=== PATIENT | male | born 1960 | race Caucasian/White ===

== ENCOUNTER 2020-08-07 14:10 | Observation (INO) | payer OTHER ==
[2020-08-07] MEDS ORDERED: PANTOPRAZOLE 40 MG/10 ML VIAL IVP STA (14:37)
[2020-08-07 15:25] LABS: Basophils # (A) 0.1 k/uL (0-0.2); Basophils % (A) 1 %; Eosinophils # (A) 0.1 k/uL (0-0.7); Eosinophils % (A) 1 %; HCT 42.4 % (39.0-53.0); HGB 13.7 gm/dL (13.0-17.5); Lymphocytes # (A) 1.2 k/uL (1.0-4.8); Lymphocytes % (A) 12 %; MCH 33.1 pg (25.0-35.0); MCHC 32.4 g/dL (31.0-37.0); MCV 102.1 fL (80.0-100.0); Macrocytosis Slight; Mean Platelet Volume 8.8; Monocytes # (A) 0.7 k/uL (0-1.0); Monocytes % (A) 7 %; Neutrophils % (A) 79 %; Platelet Count 217 k/uL (150-450); RBC 4.15 m/uL (4.30-5.90); RDW 13.7 % (11.5-15.5); WBC 10.1 k/uL (3.8-10.6)
[2020-08-07 15:31] LABS: INR 1.1 (<1.2); Partial Thromboplastin Time 25.3 sec (22.0-30.0); Prothrombin Time 11.1 sec (9.0-12.0)
[2020-08-07 15:38] LABS: ALT 46 U/L (4-49); AST 151 U/L (17-59); African American GFR (CKD) >90 (>60 ml/min/1.73 sqM); Albumin 3.5 g/dL (3.5-5.0); Alkaline Phosphatase 84 U/L (38-126); Anion Gap 10 mmol/L; Blood Urea Nitrogen 8 mg/dL (9-20); Calcium 8.7 mg/dL (8.4-10.2); Carbon Dioxide 22 mmol/L (22-30); Chloride 105 mmol/L (98-107); Glucose 126 mg/dL (74-99); Non-African American GFR(CKD) >90 (>60 ml/min/1.73 sqM); Potassium 4.3 mmol/L (3.5-5.1); Sodium 137 mmol/L (137-145); Total Bilirubin 1.1 mg/dL (0.2-1.3); Total Protein 6.8 g/dL (6.3-8.2)
[2020-08-07 15:44] LABS: Amorphous Sediment,Urine Rare /hpf; Appearance,Urine Cloudy (Clear); Bacteria,Urine Occasional /hpf; Bilirubin,Urine 1+ (Negative); Blood,Urine Negative (Negative); Color,Urine Orange; Glucose,Urine (UA) Negative (Negative); Ketones,Urine 1+ (Negative); Leukocyte Esterase,Urine Trace (Negative); Mucus,Urine Many /hpf; Nitrite,Urine Negative (Negative); Protein,Urine 1+ (Negative); Specific Gravity,Urine 1.028 (1.001-1.035); Squamous Epithelial Cell,Urine 3 /hpf (0-4); WBC,Urine 9 /hpf (0-5)
[2020-08-07 15:47] LABS: Alcohol 89 mg/dL
--- NOTE | 2020-08-07 16:21 | ED ---
General Adult HPI - General Chief complaint: Nausea/Vomiting/Diarrhea Stated complaint: ETOH Vomiting Time Seen by Provider: 08/07/20 14:35 Source: patient Limitations: no limitations - History of Present Illness Initial comments: Patient is a 59-year-old male with history of alcohol abuse presenting to the emergency department with a chief complaint of vomiting blood. Patient states he has been battling with alcohol abuse for the past several years. Patient reports he used to drink 1 pint per day. States for the past several months to a year he has been drinking about 3 pints per day. Patient states he is vomiting every morning for the past several years. Patient reports the last few days he's noticed some hematemesis. Patient also reports loose stools which are dark in color for the past 2-3 weeks. He denies any hematochezia. Denies any significant discomfort. States that he recently started seeing a primary care physician and is looking to begin rehab. States he drank a pint early this morning and also had 2 drinks prior to ED arrival. - Related Data Allergies Allergy/AdvReac Type Severity Reaction Status Date / Time No Known Allergies Allergy Verified 08/07/20 14:27 Review of Systems ROS Statement: Those systems with pertinent positive or pertinent negative responses have been documented in the HPI. ROS Other: All systems not noted in ROS Statement are negative. Past Medical History Past Medical History: Hypertension History of Any Multi-Drug Resistant Organisms: None Reported Past Surgical History: Cholecystectomy Smoking Status: Current some day smoker Past Alcohol Use History: Abuse Past Drug Use History: None Reported General Exam Limitations: no limitations General appearance: alert, in no apparent distress, obese Head exam: Present: atraumatic, normocephalic, normal inspection Eye exam: Present: normal appearance, PERRL, EOMI Pupils: Present: normal accommodation ENT exam: Present: normal exam, normal oropharynx, mucous membranes moist, TM's normal bilaterally, normal external ear exam Neck exam: Present: normal inspection, full ROM Respiratory exam: Present: normal lung sounds bilaterally. Absent: respiratory distress, rhonchi, stridor Cardiovascular Exam: Present: regular rate, normal rhythm, normal heart sounds GI/Abdominal exam: Present: soft. Absent: distended, tenderness, guarding Rectal exam: Present: normal inspection, heme (-) stool Extremities exam: Present: normal inspection, full ROM, normal capillary refill. Absent: tenderness Back exam: Present: normal inspection, full ROM. Absent: tenderness, CVA tenderness (R), CVA tenderness (L) Neurological exam: Present: alert, oriented X3, normal gait Psychiatric exam: Present: normal affect, normal mood Skin exam: Present: warm, dry, intact, normal color Course Vital Signs 08/07/20 14:24 Temperature 97.9 F Pulse Rate 105 H Respiratory 20 Rate Blood Pressure 117/73 O2 Sat by Pulse 97 Oximetry Medical Decision Making - Medical Decision Making Patient is 59-year-old male presenting to emergency Department with chief complaint of vomiting blood. Patient does have a long history of alcohol abuse and vomits every morning and daily basis. CBC does not reveal anemia. CMP reveals low BUN and creatinine likely secondary to chronic alcohol abuse. Coags within normal limits. Stool occult is negative. Serum alcohol is 89. ciwa pro tocol assessed. Patient will be admitted for further medical management. Case discussed with Dr. Henley. Admitting physician is - Lab Data Result diagrams: 08/07/20 15:02 08/07/20 15:02 Lab Results 08/07/20 08/07/20 08/07/20 Range/Units 15:02 15:02 15:02 WBC 10.1 (3.8-10.6) k/uL RBC 4.15 L (4.30-5.90) m/uL Hgb 13.7 (13.0-17.5) gm/dL Hct 42.4 (39.0-53.0) % MCV 102.1 H (80.0-100.0) fL MCH 33.1 (25.0-35.0) pg MCHC 32.4 (31.0-37.0) g/dL RDW 13.7 (11.5-15.5) % Plt Count 217 (150-450) k/uL Neutrophils % 79 % Lymphocytes % 12 % Monocytes % 7 % Eosinophils % 1 % Basophils % 1 % Neutrophils # 8.0 H (1.3-7.7) k/uL Lymphocytes # 1.2 (1.0-4.8) k/uL Monocytes # 0.7 (0-1.0) k/uL Eosinophils # 0.1 (0-0.7) k/uL Basophils # 0.1 (0-0.2) k/uL Macrocytosis Slight PT (9.0-12.0) sec INR (<1.2) APTT (22.0-30.0) sec Sodium 137 (137-145) mmol/L Potassium 4.3 (3.5-5.1) mmol/L Chloride 105 (98-107) mmol/L Carbon Dioxide 22 (22-30) mmol/L Anion Gap 10 mmol/L BUN 8 L (9-20) mg/dL Creatinine 0.59 L (0.66-1.25) mg/dL Est GFR (CKD-EPI)AfAm >90 (>60 ml/min/1.73 sqM) Est GFR (CKD-EPI)NonAf >90 (>60 ml/min/1.73 sqM) Glucose 126 H (74-99) mg/dL Calcium 8.7 (8.4-10.2) mg/dL Total Bilirubin 1.1 (0.2-1.3) mg/dL AST 151 H (17-59) U/L ALT 46 (4-49) U/L Alkaline Phosphatase 84 (38-126) U/L Total Protein 6.8 (6.3-8.2) g/dL Albumin 3.5 (3.5-5.0) g/dL Lipase 254 (23-300) U/L Urine Color [place] Urine Appearance Cloudy (Clear) Urine pH 6.0 (5.0-8.0) Ur Specific [place] 1.028 (1.001-1.035) Urine Protein 1+ H (Negative) Urine Glucose (UA) Negative (Negative) Urine Ketones 1+ H (Negative) Urine Blood Negative (Negative) Urine Nitrite Negative (Negative) Urine Bilirubin 1+ H (Negative) Urine Urobilinogen 8.0 (<2.0) mg/dL Ur Leukocyte Esterase Trace H (Negative) Urine WBC 9 H (0-5) /hpf Ur Squamous Epith Cells 3 (0-4) /hpf Amorphous Sediment Rare H (None) /hpf Urine Bacteria Occasional H (None) /hpf Urine Mucus Many H (None) /hpf Stool Occult Blood (Negative) Serum Alcohol 89 mg/dL Blood Type Blood Type Confirm Blood Type Recheck Bld Type Recheck Status Antibody Screen Spec Expiration Date 08/07/20 08/07/20 08/07/20 Range/Units 15:02 15:02 15:02 WBC (3.8-10.6) k/uL RBC (4.30-5.90) m/uL Hgb (13.0-17.5) gm/dL Hct (39.0-53.0) % MCV (80.0-100.0) fL MCH (25.0-35.0) pg MCHC (31.0-37.0) g/dL RDW (11.5-15.5) % Plt Count (150-450) k/uL Neutrophils % % Lymphocytes % % Monocytes % % Eosinophils % % Basophils % % Neutrophils # (1.3-7.7) k/uL Lymphocytes # (1.0-4.8) k/uL Monocytes # (0-1.0) k/uL Eosinophils # (0-0.7) k/uL Basophils # (0-0.2) k/uL Macrocytosis PT 11.1 (9.0-12.0) sec INR 1.1 (<1.2) APTT 25.3 (22.0-30.0) sec Sodium (137-145) mmol/L Potassium (3.5-5.1) mmol/L Chloride (98-107) mmol/L Carbon Dioxide (22-30) mmol/L Anion Gap mmol/L BUN (9-20) mg/dL Creatinine (0.66-1.25) mg/dL Est GFR (CKD-EPI)AfAm (>60 ml/min/1.73 sqM) Est GFR (CKD-EPI)NonAf (>60 ml/min/1.73 sqM) Glucose (74-99) mg/dL Calcium (8.4-10.2) mg/dL Total Bilirubin (0.2-1.3) mg/dL AST (17-59) U/L ALT (4-49) U/L Alkaline Phosphatase (38-126) U/L Total Protein (6.3-8.2) g/dL Albumin (3.5-5.0) g/dL Lipase (23-300) U/L Urine Color Urine Appearance (Clear) Urine pH (5.0-8.0) Ur Specific [place] (1.001-1.035) Urine Protein (Negative) Urine Glucose (UA) (Negative) Urine Ketones (Negative) Urine Blood (Negative) Urine Nitrite (Negative) Urine Bilirubin (Negative) Urine Urobilinogen (<2.0) mg/dL Ur Leukocyte Esterase (Negative) Urine WBC (0-5) /hpf Ur Squamous Epith Cells (0-4) /hpf Amorphous Sediment (None) /hpf Urine Bacteria (None) /hpf Urine Mucus (None) /hpf Stool Occult Blood Negative (Negative) Serum Alcohol mg/dL Blood Type A Negative Blood Type Confirm Blood Type Recheck No Previous Record Bld Type Recheck Status CABO Indicated Antibody Screen NEGATIVE Spec Expiration Date 08/10/2020 - 230108/07/20 Range/Units 15:54 WBC (3.8-10.6) k/uL RBC (4.30-5.90) m/uL Hgb (13.0-17.5) gm/dL Hct (39.0-53.0) % MCV (80.0-100.0) fL MCH (25.0-35.0) pg MCHC (31.0-37.0) g/dL RDW (11.5-15.5) % Plt Count (150-450) k/uL Neutrophils % % Lymphocytes % % Monocytes % % Eosinophils % % Basophils % % Neutrophils # (1.3-7.7) k/uL Lymphocytes # (1.0-4.8) k/uL Monocytes # (0-1.0) k/uL Eosinophils # (0-0.7) k/uL Basophils # (0-0.2) k/uL Macrocytosis PT (9.0-12.0) sec INR (<1.2) APTT (22.0-30.0) sec Sodium (137-145) mmol/L Potassium (3.5-5.1) mmol/L Chloride (98-107) mmol/L Carbon Dioxide (22-30) mmol/L Anion Gap mmol/L BUN (9-20) mg/dL Creatinine (0.66-1.25) mg/dL Est GFR (CKD-EPI)AfAm (>60 ml/min/1.73 sqM) Est GFR (CKD-EPI)NonAf (>60 ml/min/1.73 sqM) Glucose (74-99) mg/dL Calcium (8.4-10.2) mg/dL Total Bilirubin (0.2-1.3) mg/dL AST (17-59) U/L ALT (4-49) U/L Alkaline Phosphatase (38-126) U/L Total Protein (6.3-8.2) g/dL Albumin (3.5-5.0) g/dL Lipase (23-300) U/L Urine Color Urine Appearance (Clear) Urine pH (5.0-8.0) Ur Specific [place] (1.001-1.035) Urine Protein (Negative) Urine Glucose (UA) (Negative) Urine Ketones (Negative) Urine Blood (Negative) Urine Nitrite (Negative) Urine Bilirubin (Negative) Urine Urobilinogen (<2.0) mg/dL Ur Leukocyte Esterase (Negative) Urine WBC (0-5) /hpf Ur Squamous Epith Cells (0-4) /hpf Amorphous Sediment (None) /hpf Urine Bacteria (None) /hpf Urine Mucus (None) /hpf Stool Occult Blood (Negative) Serum Alcohol mg/dL Blood Type Blood Type Confirm A Negative Blood Type Recheck Bld Type Recheck Status Antibody Screen Spec Expiration Date Disposition Clinical Impression: Alcohol intoxication Disposition: ADMITTED IP TO THIS [facility] Condition: Good Instructions (If sedation given, give patient instructions): Acute Nausea and Vomiting (ED) Is patient prescribed a controlled substance at d/c from ED?: No Referrals: Lee Carrington MD [Primary Care Provider] - 1-2 days Time of Disposition: 17:09
[2020-08-07] MEDS ORDERED: LORazepam 2 MG/ML INJ IV PRN ×3 (16:36→16:38)
[2020-08-07] MEDS ORDERED: ACETAMINOPHEN TAB 325 MG TAB PO PRN (16:36)
[2020-08-07] MEDS ORDERED: IBUPROFEN 400 MG TAB PO PRN (16:36)
[2020-08-07] MEDS ORDERED: NALOXONE 0.4 MG/ML 1 ML VIAL IV PRN (16:36)
[2020-08-07] MEDS ORDERED: ONDANSETRON 4 MG/2 ML VIAL IVP PRN (16:36)
[2020-08-07] MEDS ORDERED: THIAMINE 100 MG/ML 2 ML VIAL IM STA (16:38)
--- NOTE | 2020-08-07 20:53 | XR ---
EXAMINATION TYPE: XR chest 1V DATE OF EXAM: 08/07/2020 COMPARISON: NONE HISTORY: Shortness of breath. TECHNIQUE: Single frontal view of the chest is obtained. FINDINGS: There is no focal air space opacity, pleural effusion, or pneumothorax seen. The cardiac silhouette size is within normal limits. The osseous structures are intact. IMPRESSION: No acute process.
--- NOTE | 2020-08-07 20:55 | XR ---
Result: History: Pain without known injury.. Comparison: None available. Technique: 2 views of the left hip. Findings: The bone mineralization is appropriate for age. There is no acute fracture or dislocation. The visualized osseous structures are in anatomic alignme nt. The femoral head is well-seated in the acetabulum. The joint spaces are preserved. Impression: No acute osseous abnormality.
[2020-08-07] MEDS: LORazepam 2 MG/ML INJ IV PRN (21:44)
[2020-08-08 01:37] LABS: Hemoglobin A1C 5.4 % (4.0-6.0)
--- NOTE | 2020-08-08 03:23 | HP ---
HISTORY AND PHYSICAL A 59-year-old white male, alcohol abuse, came with vomiting up blood. Alcohol abuse for many years. He has been drinking 3 pints a day, came in complaining of bilateral hip pain. Wants orthopedic surgeon to see him on his hip as well as some x-rays. He was on naltrexone, I do not see that he is on it now for alcohol withdrawal. ALLERGIES: Negative. PAST MEDICAL HISTORY: Hypertension, cholecystectomy. Current everyday smoker, 3 pints of whisky a day. REVIEW OF SYSTEMS: Fourteen-point review of systems negative. PHYSICAL EXAMINATION: VITAL SIGNS: Stable, afebrile. Temp 97.9, pulse rate is 105, blood pressure 117/73, respiratory 18 to 20, O2 of 97. CARDIOVASCULAR: S1, S2. LUNGS: Clear. GI: Soft. HEMATOLOGY: Negative Homans. PSYCH: Fair mood and affect. ENDOCRINE: BMI is over 40. MUSCULOSKELETAL: Tenderness to palpation bilateral hips. EXTREMITIES: 2+ edema. NEUROLOGIC: Moderate amount of tremor. ASSESSMENT: 1. Hematemesis. 2. Dehydration. 3. Alcohol abuse. 4. Alcohol withdrawal. 5. Hip pain. Orthopedic consult. [facility] protocol. Alcohol counseling. Replace electrolytes. Thiamine and multivitamin given daily. MMODL / IJN: [id number] /
[2020-08-08] MEDS: LORazepam 2 MG/ML INJ IV PRN ×2 (04:44→10:10)
[2020-08-08 05:12] LABS: Basophils % (A) 1 %; Eosinophils # (A) 0.1 k/uL (0-0.7); Eosinophils % (A) 1 %; HGB 13.3 gm/dL (13.0-17.5); Lymphocytes # (A) 1.3 k/uL (1.0-4.8); Lymphocytes % (A) 14 %; MCH 33.3 pg (25.0-35.0); MCHC 32.4 g/dL (31.0-37.0); MCV 102.7 fL (80.0-100.0); Macrocytosis Slight; Mean Platelet Volume 8.7; Monocytes # (A) 0.6 k/uL (0-1.0); Monocytes % (A) 7 %; Neutrophils % (A) 76 %; Platelet Count 189 k/uL (150-450); RBC 3.99 m/uL (4.30-5.90); RDW 13.1 % (11.5-15.5); WBC 9.2 k/uL (3.8-10.6)
[2020-08-08] MEDS: THIAMINE 100 MG TAB PO SCH ×2 (07:27→17:38)
[2020-08-08 09:14] LABS: African American GFR (CKD) 127.6 (60.0-200.0); Albumin 3.5 g/dL (3.80-4.90); Albumin/Globulin Ratio 1.35 (1.60-3.17); Anion Gap 9.7 mmol/L (4.00-12.00); BUN/Creat Ratio 18.33 Ratio (12.00-20.00); Carbon Dioxide 26.3 mmol/L (21.6-31.8); Globulin 2.6 g/dL (1.6-3.3); Non-African American GFR(CKD) 110.1 (60.0-200.0); Total Bilirubin 1.3 mg/dL (0.3-1.2); Total Protein 6.1 g/dL (6.2-8.2)
--- NOTE | 2020-08-08 11:08 | P.CNOR ---
History of Present Illness - HPI Consult date: 08/08/20 History of present illness: This is a 59-year-old male admitted for alcohol abuse. Patient's past medical history significant for hypertension and sleep apnea. Orthopedics is consulted due to left hip pain. Patient is seen and evaluated at bedside with Dr. Sander Carter. Patient denies any injury, but states that for the last few months he has noticed pain in the left hip. Patient localizes the pain to the back of his left hip. Patient states that he is able to ambulate. Patient denies any fever/chills, numbness, weakness, tingling, abdominal pain, shortness of breath or chest pain. Review of Systems See HPI. Past Medical History Past Medical History: Hypertension, Sleep Apnea/CPAP/BIPAP History of Any Multi-Drug Resistant Organisms: None Reported Past Surgical History: Cholecystectomy, Hernia Repair Additional Past Surgical History / Comment(s): Hernia repair, EGD, Colonoscopy Past Psychological History: Anxiety Smoking Status: Never smoker Past Alcohol Use History: Abuse, Daily Additional Past Alcohol Use History / Comment(s): Drink 3 pints of vodka daily Past Drug Use History: Marijuana Additional Drug Use History / Comment(s): smokes marijuana occasional - Past Family History Mother Family Medical History: Musculoskeletal Disorder Father Family Medical History: AFIB, Diabetes Mellitus Medications and Allergies Home Medications Medication Instructions Recorded Confirmed Type Losartan [Cozaar] 50 mg PO DAILY 08/07/20 08/07/20 History Allergies Allergy/AdvReac Type Severity Reaction Status Date / Time No Known Allergies Allergy Verified 08/07/20 17:22 Physical Examination Vital signs are stable. Patient is in no acute distress and is alert and oriented 3. There is mild tenderness to palpation over the posterior aspect of the left hip. Patient has good range of motion of the left hip without pain or difficulty. Calf is soft and nontender to palpation. Patient has full foot and ankle motion without pain or difficulty. Neurovascular status and circulatory status are intact. Results X-rays of the left hip dated 08/07/2020 are negative for any fracture or dislocation. - Labs Labs: Abnormal Lab Results - Last 24 Hours (Table) 08/07/20 08/07/20 08/07/20 Range/Units 15:02 15:02 15:02 RBC 4.15 L (4.30-5.90) m/uL MCV 102.1 H (80.0-100.0) fL Neutrophils # 8.0 H (1.3-7.7) k/uL BUN 8 L (9-20) mg/dL Creatinine 0.59 L (0.66-1.25) mg/dL Glucose 126 H (74-99) mg/dL Total Bilirubin (0.3-1.2) mg/dL AST 151 H (17-59) U/L Total Protein (6.2-8.2) g/dL Albumin (3.80-4.90) g/dL Albumin/Globulin Ratio (1.60-3.17) g/dL Urine Protein 1+ H (Negative) Urine Ketones 1+ H (Negative) Urine Bilirubin 1+ H (Negative) Ur Leukocyte Esterase Trace H (Negative) Urine WBC 9 H (0-5) /hpf Amorphous Sediment Rare H (None) /hpf Urine Bacteria Occasional H (None) /hpf Urine Mucus Many H (None) /hpf 08/08/20 08/08/20 Range/Units 04:34 04:34 RBC 3.99 L (4.30-5.90) m/uL MCV 102.7 H (80.0-100.0) fL Neutrophils # (1.3-7.7) k/uL BUN (9-20) mg/dL Creatinine (0.66-1.25) mg/dL Glucose (74-99) mg/dL Total Bilirubin 1.3 H (0.3-1.2) mg/dL AST 118 H (17-59) U/L Total Protein 6.1 L (6.2-8.2) g/dL Albumin 3.50 L (3.80-4.90) g/dL Albumin/Globulin Ratio 1.35 L (1.60-3.17) g/dL Urine Protein (Negative) Urine Ketones (Negative) Urine Bilirubin (Negative) Ur Leukocyte Esterase (Negative) Urine WBC (0-5) /hpf Amorphous Sediment (None) /hpf Urine Bacteria (None) /hpf Urine Mucus (None) /hpf H & H 08/07/20 08/08/20 Range/Units 15:02 04:34 Hgb 13.7 13.3 (13.0-17.5) gm/dL Hct 42.4 41.0 (39.0-53.0) % Coagulation 08/07/20 Range/Units 15:02 INR 1.1 (<1.2) Result Diagrams: 08/08/20 04:34 08/08/20 04:34 Assessment and Plan (1) Left hip pain Current Visit: Yes Status: Acute Code(s): M25.552 - PAIN IN LEFT HIP SNOMED Code(s): 11159102 (2) Alcohol intoxication Current Visit: Yes Status: Acute Code(s): F10.929 - ALCOHOL USE, UNSPECIFIED WITH INTOXICATION, UNSPECIFIED SNOMED Code(s): 07578916 Plan: 1. X-rays are reviewed and are negative for any fracture, dislocation or significant arthritis. 2. No surgical intervention planned. Patient may benefit from physical therapy and may follow up with [facility] as an outpatient.
[2020-08-08] MEDS: lamoTRIgine 25 MG TAB PO SCH (17:38)
[2020-08-08] MEDS: SUCRALFATE 1 GM TAB PO SCH (17:38)
--- NOTE | 2020-08-08 17:55 | US ---
EXAMINATION TYPE: US liver DATE OF EXAM: 08/08/2020 COMPARISON: NONE CLINICAL HISTORY: elevated liver enzymes. ETOH EXAM MEASUREMENTS: Liver Length: 13.2 cm Gallbladder Wall: Surgically absent CBD: 0.3 cm Right Kidney: 11.9 x 7.1 x 5.7 cm Pancreas: Obscured by bowel gas Liver: Coarse, echogenic echotexture. There is beam attenuation and nonvisualization of the posterio r liver. Gallbladder: Surgically absent Administrative Support Specialist reports negative sonographic Larsen sign. CBD: Not dilated, however very limited exam. Right Kidney: Limited visualization. No hydronephrosis. IMPRESSION: 1. Limited exam due to patient body habitus and overlying bowel gas. 2. Coarsened hepatic echotexture may represent diffuse hepatocellular process such as cirrhosis. Post erior liver is not visualized.
[2020-08-08] MEDS: PANTOPRAZOLE 40 MG/10 ML VIAL IVP SCH (21:00)
[2020-08-08 21:56] VITALS: RESP 18
[2020-08-09 05:26] LABS: HCT 39.5 % (39.0-53.0); HGB 12.6 gm/dL (13.0-17.5); MCH 32.9 pg (25.0-35.0); MCV 102.8 fL (80.0-100.0); Macrocytosis Slight; Mean Platelet Volume 8.8; Platelet Count 169 k/uL (150-450); RBC 3.84 m/uL (4.30-5.90); RDW 13.4 % (11.5-15.5); WBC 8.9 k/uL (3.8-10.6)
[2020-08-09 06:03] VITALS: BP 132/89; PULSE 80; TEMP 98.5
--- NOTE | 2020-08-09 08:04 | P.CONS ---
History of Present Illness - Reason for Consult Consult date: 08/08/20 Hematemesis Requesting physician: Lee Carrington - Chief Complaint Hematemesis - History of Present Illness 59-year-old male with a medical history significant for alcohol abuse, hypertension and MARIELLE who presented to the hospital due to complaints of nausea, vomiting and blood-tinged vomitus. The patient has a longstanding history of alcohol abuse which is increased over the past few months. He is up to 3 pints of alcohol a day. The patient presented to the hospital due to nausea and vomiting which has been occurring every morning with some blood-tinged vomitus. The patient first noticed the blood approximately 4 days ago. He denies any prior history of GI bleeding. He denies any abdominal pain. Laboratory evaluation on presentation significant for INR 1.1, total bilirubin 1.3, alkaline phosphatase 92, AST 118, ALT 42, hemoglobin 13.3 with stool occult testing negative for blood. Review of Systems REVIEW OF SYSTEMS: CONSTITUTIONAL: Denies any fevers, chills, weight change or fatigue. CARDIOVASCULAR: Denies any chest pain, palpitations high or low blood pressures RESPIRATORY: Denies any shortness of breath, hemoptysis or cough. GENITOURINARY: No dysuria or hematuria, does report dark colored urine. MUSCULOSKELETAL: No weakness reported, does report hip pain. SKIN: Denies any new rashes or lesions, jaundice or pallor. PSYCHIATRIC: Denies any depression or anxiety, alcohol abuse. NEUROLOGY: Denies headache, denies any new focal deficits. EARS/NOSE/THROAT: No recent hearing change, congestion, nasal discharge or sore throat. EYES: No pain in eyes, discharge or change in vision. GASTROINTESTINAL: As per HPI. Past Medical History Past Medical History: Hypertension, Sleep Apnea/CPAP/BIPAP History of Any Multi-Drug Resistant Organisms: None Reported Past Surgical History: Cholecystectomy, Hernia Repair Additional Past Surgical History / Comment(s): Hernia repair, EGD, Colonoscopy Past Psychological History: Anxiety Smoking Status: Never smoker Past Alcohol Use History: Abuse, Daily Additional Past Alcohol Use History / Comment(s): Drink 3 pints of vodka daily Past Drug Use History: Marijuana Additional Drug Use History / Comment(s): smokes marijuana occasional - Past Family History Mother Family Medical History: Musculoskeletal Disorder Father Family Medical History: AFIB, Diabetes Mellitus Medications and Allergies Home Medications Medication Instructions Recorded Confirmed Type Losartan [Cozaar] 50 mg PO DAILY 08/07/20 08/07/20 History Allergies Allergy/AdvReac Type Severity Reaction Status Date / Time No Known Allergies Allergy Verified 08/07/20 17:22 Physical Exam Vitals: Vital Signs Temp Pulse Pulse Resp BP BP Pulse Ox 08/08/20 11:50 98.3 F 90 24 134/84 95 08/08/20 05:00 98.6 F 97 20 145/82 93 L 08/07/20 21:00 98.6 F 99 20 143/90 95 08/07/20 17:53 104 H 18 144/90 93 L Intake and Output 08/08/20 08/08/20 08/08/20 06:59 14:59 22:59 Other: Voiding Method Toilet Toilet # Voids 1 2 On physical examination, patient appears comfortable in no apparent distress. HEAD: Normocephalic, atraumatic. EYES: No scleral icterus. No conjunctival injection. MOUTH: No lesions, tongue midline. NECK: Trachea midline, no gross abnormalities. CHEST: Clear to auscultation with no wheezing or rhonchi appreciated. HEART: Regular rate and rhythm. ABDOMEN: Soft, obese. Bowel sounds are positive. No organomegaly. No guarding or rigidity. EXTREMITIES: No pedal edema. SKIN: No rashes, no jaundice. NEUROLOGIC: Alert and oriented x3, tremulousness. No focal deficits. Results CBC & Chem 7: 08/09/20 04:59 08/08/20 04:34 Labs: Abnormal Lab Results - Last 24 Hours (Table) 08/07/20 08/07/20 08/07/20 Range/Units 15:02 15:02 15:02 RBC 4.15 L (4.30-5.90) m/uL MCV 102.1 H (80.0-100.0) fL Neutrophils # 8.0 H (1.3-7.7) k/uL BUN 8 L (9-20) mg/dL Creatinine 0.59 L (0.66-1.25) mg/dL Glucose 126 H (74-99) mg/dL Total Bilirubin (0.3-1.2) mg/dL AST 151 H (17-59) U/L Total Protein (6.2-8.2) g/dL Albumin (3.80-4.90) g/dL Albumin/Globulin Ratio (1.60-3.17) g/dL Urine Protein 1+ H (Negative) Urine Ketones 1+ H (Negative) Urine Bilirubin 1+ H (Negative) Ur Leukocyte Esterase Trace H (Negative) Urine WBC 9 H (0-5) /hpf Amorphous Sediment Rare H (None) /hpf Urine Bacteria Occasional H (None) /hpf Urine Mucus Many H (None) /hpf 08/08/20 08/08/20 Range/Units 04:34 04:34 RBC 3.99 L (4.30-5.90) m/uL MCV 102.7 H (80.0-100.0) fL Neutrophils # (1.3-7.7) k/uL BUN (9-20) mg/dL Creatinine (0.66-1.25) mg/dL Glucose (74-99) mg/dL Total Bilirubin 1.3 H (0.3-1.2) mg/dL AST 118 H (17-59) U/L Total Protein 6.1 L (6.2-8.2) g/dL Albumin 3.50 L (3.80-4.90) g/dL Albumin/Globulin Ratio 1.35 L (1.60-3.17) g/dL Urine Protein (Negative) Urine Ketones (Negative) Urine Bilirubin (Negative) Ur Leukocyte Esterase (Negative) Urine WBC (0-5) /hpf Amorphous Sediment (None) /hpf Urine Bacteria (None) /hpf Urine Mucus (None) /hpf US - abdomen: report reviewed (=US showing coarsened liver echotexture.) Assessment and Plan (1) Hematemesis Narrative/Plan: 59-year-old male with multiple medical comorbidities including alcohol abuse presenting with nausea, vomiting and blood-tinged vomitus. Patient reports nausea and vomiting every morning. Currently drinking 3 pints of alcohol daily. He denies any abdominal pain. Hemoglobin normal at 13.3 on presentation with stool negative for occult blood testing. Unclear etiology, suspicion is for Mal reena-Buenrostro tear in the setting of multiple episodes of nausea and vomiting, variceal bleed unlikely due to hemodynamic stability and normal hemoglobin, differential also includes peptic ulcer disease, gastritis, esophagitis or other etiology. Current Visit: Yes Status: Acute Code(s): K92.0 - HEMATEMESIS SNOMED Code(s): 5204927 (2) Alcohol intoxication Current Visit: Yes Status: Acute Code(s): F10.929 - ALCOHOL USE, UNSPECIFIED WITH INTOXICATION, UNSPECIFIED SNOMED Code(s): 87342752 (3) Left hip pain Current Visit: Yes Status: Acute Code(s): M25.552 - PAIN IN LEFT HIP SNOMED Code(s): 81307787 Plan: Supportive care GERD Protonix twice daily Continue to monitor hemoglobin and hematocrit and transfuse as needed Alcohol abstinence Continue to monitor for signs or symptoms of alcohol withdrawal Continue to monitor stool output No plans for endoscopic evaluation at this time as patient is currently undergoing alcohol withdrawal, decision on endoscopy will be based on labs and clinical course Thank you for allowing us to participate in the care of the patient
[2020-08-09] MEDS: SUCRALFATE 1 GM TAB PO SCH (08:24)
[2020-08-09] MEDS: lamoTRIgine 25 MG TAB PO SCH (08:24)
[2020-08-09] MEDS: THIAMINE 100 MG TAB PO SCH (08:24)
[2020-08-09] MEDS: PANTOPRAZOLE 40 MG/10 ML VIAL IVP SCH (08:25)
[2020-08-09 09:30] LABS: African American GFR (CKD) 119.7 (60.0-200.0); Albumin 3.4 g/dL (3.80-4.90); Albumin/Globulin Ratio 1.31 (1.60-3.17); Anion Gap 8.8 mmol/L (4.00-12.00); BUN/Creat Ratio 14.29 Ratio (12.00-20.00); Calcium 8.9 mg/dL (8.7-10.3); Carbon Dioxide 24.2 mmol/L (21.6-31.8); Globulin 2.6 g/dL (1.6-3.3); Non-African American GFR(CKD) 103.3 (60.0-200.0); Potassium 4.2 mmol/L (3.5-5.5); Total Bilirubin 1.2 mg/dL (0.2-1.2)
--- NOTE | 2020-08-09 12:36 | P.PN ---
Subjective Progress Note Date: 08/09/20 Principal diagnosis: Hematemesis Patient seen and examined at the bedside. The patient denies any vomiting, states he was slightly nauseated this morning. He did have a couple episodes of vomiting yesterday however reports no blood noted. He denies any abdominal pain, bowel movements have been normal with no melena or rectal bleeding. He is tolerating a regular diet. He is currently going through withdrawals from EtOH. He is on CIWA protocol. His hemoglobin remained stable at 12.6. Underwent a liver ultrasound yesterday which showed coarsened hepatic echotexture may represent diffuse hepatocellular process such as cirrhosis. Objective - Vital Signs Vital signs: Vital Signs Temp 98.5 F 08/09/20 05:00 Pulse 80 08/09/20 05:00 Resp 18 08/09/20 05:00 BP 132/89 08/09/20 05:00 Pulse Ox 92 L 08/09/20 05:00 Intake & Output 08/08/20 08/09/20 08/09/20 18:59 06:59 18:59 Other: Voiding Method Toilet Toilet Toilet # Voids 2 2 - Exam General appearance: The patient is alert, oriented, in no acute distress. Obese. HET: Head is normocephalic and atraumatic. Conjunctiva pink. Sclera anicteric. Neck: Supple without lymphadenopathy. Abdomen: Soft, nontender, nondistended with bowel sounds. No guarding or rigidity. Extremities: Normal skin color and turgor. No pedal edema Neurological: No focal deficits. Alert and oriented 3. No tremors noted. - Labs CBC & Chem 7: 08/09/20 04:59 08/09/20 04:59 Labs: Abnormal Lab Results - Last 24 Hours (Table) 08/09/20 08/09/20 Range/Units 04:59 04:59 RBC 3.84 L (4.30-5.90) m/uL Hgb 12.6 L (13.0-17.5) gm/dL MCV 102.8 H (80.0-100.0) fL AST 103 H (14-35) U/L Total Protein 6.0 L (6.2-8.2) g/dL Albumin 3.40 L (3.80-4.90) g/dL Albumin/Globulin Ratio 1.31 L (1.60-3.17) g/dL Assessment and Plan (1) Hematemesis Narrative/Plan: 59-year-old male with multiple medical comorbidities including alcohol abuse presenting with nausea, vomiting and blood-tinged vomitus. Patient reports nausea and vomiting every morning. Currently drinking 3 pints of alcohol daily. He denies any abdominal pain. Hemoglobin normal at 13.3 on presentation with stool negative for occult blood testing. Unclear etiology, suspicion is for Sunshine-Buenrostro tear in the setting of multiple episodes of nausea and vomiting, variceal bleed unlikely due to hemodynamic stability and normal hemoglobin, differential also includes peptic ulcer disease, gastritis, esophagitis or other etiology. Current Visit: Yes Status: Acute Code(s): K92.0 - HEMATEMESIS SNOMED Code(s): 3694453 Plan: Supportive care GERD Protonix twice daily Continue to monitor hemoglobin and hematocrit and transfuse as needed Alcohol abstinence Continue to monitor for signs or symptoms of alcohol withdrawal Continue to monitor stool output No plans for endoscopic evaluation at this time as patient is currently undergoing alcohol withdrawal, decision on endoscopy will be based on labs and clinical course Thank you for allowing us to participate in the care of the patient The impression and plan of care has been dictated as directed. I performed a history and examination of this patient, discussed the same with the dictator. I agree with the dictator's note ,documented as a scribe. Any additional findings or plans will be noted.
== END 2020-08-09 14:13 | disposition home or self-care (01) ==
LOC: EC 14:10 → 6NMEDSUR 16:35
PROVIDERS: ADMIT Family Medicine; ATTEND Family Medicine
DX: F10.229 Alcohol dependence with intoxication, unspecified (principal); E86.0 Dehydration; F10.239 Alcohol dependence with withdrawal, unspecified; F17.200 Nicotine dependence, unspecified, uncomplicated; I10 Essential (primary) hypertension; K92.0 Hematemesis; Z79.899 Other long term (current) drug therapy; Z83.3 Family history of diabetes mellitus; M25.552 Pain in left hip
CPT/HCPCS: 96376; 96374; 96375; 96372; 99285; 36415; 93005; 86900; 86901; 80053 ×3; 83690; 85025 ×2; 85027; 85610; 85730; 86850; 82272; 81001; 83036; 73502; 71045; 76705; G0378 ×3; G0480; J2060 ×2; J3411; C9113 ×2; 80320

== ENCOUNTER 2020-09-20 21:29 | Inpatient (IN) | payer OTHER ==
[2020-09-20] MEDS ORDERED: ONDANSETRON 4 MG/2 ML VIAL IVP STA (21:45)
[2020-09-20] MEDS ORDERED: PANTOPRAZOLE 40 MG/10 ML VIAL IVP STA ×2 (21:45→21:59)
[2020-09-20] MEDS ORDERED: SODIUM CHLORIDE 0.9% 1,000 ML IV STA (21:45)
[2020-09-20] MEDS ORDERED: SODIUM CHLORIDE 0.9% 500 ML 500 ML IV ONE (22:00)
[2020-09-20 22:17] LABS: Basophils # (A) 0.1 k/uL (0-0.2); Basophils % (A) 1 %; Eosinophils # (A) 0.1 k/uL (0-0.7); Eosinophils % (A) 1 %; HCT 46.9 % (39.0-53.0); Lymphocytes # (A) 1.1 k/uL (1.0-4.8); Lymphocytes % (A) 12 %; MCH 32.6 pg (25.0-35.0); MCHC 33.6 g/dL (31.0-37.0); Mean Platelet Volume 9.1; Monocytes # (A) 0.7 k/uL (0-1.0); Monocytes % (A) 8 %; Neutrophils # (A) 7.1 k/uL (1.3-7.7); Neutrophils % (A) 77 %; Platelet Count 203 k/uL (150-450); RBC 4.83 m/uL (4.30-5.90); RDW 13.1 % (11.5-15.5); WBC 9.2 k/uL (3.8-10.6)
--- NOTE | 2020-09-20 22:20 | ED ---
GI Bleed HPI - General Chief complaint: GI Bleed Stated complaint: Vomiting blood Time Seen by Provider: 09/20/20 21:41 Source: patient Mode of arrival: ambulatory Limitations: no limitations - History of Present Illness Initial comments: 59-year-old male patient presents to the emergency department today for evaluation of coffee-ground emesis. Patient states that since this afternoon he has been vomiting every 20 minutes. States each episode has contained dark brown coffee ground type output. States he has been feeling dizzy and weak. Denies any abdominal or chest pain. States he has not had a bowel movement to day. Denies any hematochezia or melena yesterday. He does admit to heavy alcohol use, states he drinks daily for the last 40 years. States he did have an episode last month for he was vomiting bright red blood. States he was admitted to the hospital but had no procedures done to determine source or necessary to stop the bleeding. Patient states he does have a history of hypertension he is not currently taking any medication for this. Denies any other medical problems. Does not to smoking cigarettes. Patient denies any recent rash, fever, chills, cough, shortness of breath, diarrhea, constipation, back pain, numbness, tingling, hematuria, dysuria, urinary urgency, urinary frequency, headache, visual changes, or any other complaints. - Related Data Previous Rx's Medication Instructions Recorded Acetaminophen Tab [Tylenol] 650 mg PO Q6HR PRN tab 08/09/20 Ibuprofen [Motrin] 400 mg PO Q6HR PRN tab 08/09/20 Thiamine [Vitamin B-1] 100 mg PO BID-W/MEALS 30 Days #60 08/09/20 tab lamoTRIgine [LaMICtal] 25 mg PO DAILY 30 Days #30 tab 08/09/20 Allergies Allergy/AdvReac Type Severity Reaction Status Date / Time No Known Allergies Allergy Verified 09/20/20 22:16 Review of Systems ROS Statement: Those systems with pertinent positive or pertinent negative responses have been documented in the HPI. ROS Other: All systems not noted in ROS Statement are negative. Past Medical History Past Medical History: Hypertension, Sleep Apnea/CPAP/BIPAP History of Any Multi-Drug Resistant Organisms: None Reported Past Surgical History: Cholecystectomy, Hernia Repair Additional Past Surgical History / Comment(s): Hernia repair, EGD, Colonoscopy Past Psychological History: Anxiety Smoking Status: Never smoker Past Alcohol Use History: Abuse, Daily Past Drug Use History: Marijuana - Past Family History Mother Family Medical History: Musculoskeletal Disorder Father Family Medical History: AFIB, Diabetes Mellitus General Exam Limitations: no limitations General appearance: alert, in no apparent distress, other (This is a well- developed, well-nourished adult male patient in no acute distress. Vital signs upon presentation are temperature 98.3F, pulse 114, respirations 22, blood pressure 144/103, pulse ox 97% on room air.) Eye exam: Present: normal appearance, PERRL, EOMI. Absent: scleral icterus, conjunctival injection, periorbital swelling ENT exam: Present: normal exam, normal oropharynx, mucous membranes moist Respiratory exam: Present: normal lung sounds bilaterally. Absent: respiratory distress, wheezes, rales, rhonchi, stridor Cardiovascular Exam: Present: regular rate, normal rhythm, normal heart sounds. Absent: systolic murmur, diastolic murmur, rubs, gallop, clicks GI/Abdominal exam: Present: soft, normal bowel sounds. Absent: distended, te nderness, guarding, rebound, rigid Neurological exam: Present: alert, oriented X3, CN II-XII intact Psychiatric exam: Present: normal affect, normal mood Skin exam: Present: warm, dry, intact, normal color. Absent: rash Course Vital Signs 09/20/20 09/20/20 21:36 23:12 Temperature 98.3 F Pulse Rate 114 H 88 Respiratory 22 16 Rate Blood Pressure 144/103 145/78 O2 Sat by Pulse 97 93 L Oximetry Medical Decision Making - Medical Decision Making 39-year-old male patient presents to the emergency department today for evaluation of multiple episodes of coffee-ground emesis. Patient did have an episode here in the emergency department, there was present of dark brown vomitus with clots present. Labs reviewed and did reveal normal white blood cell, hemoglobin 15.7. INR 1.2. Lactic acid 6.5. AST 164, ALT 50. Alcohol level at this time is 95. Patient will be admitted to the hospital for further evaluation by GI. We will initiate [facility] protocol for alcohol draw. Patient is agreeable this plan. - Lab Data Result diagrams: 09/20/20 22:08 09/20/20 22:08 Lab Results 09/20/20 09/20/20 09/20/20 Range/Units 22:08 22:08 22:08 WBC 9.2 (3.8-10.6) k/uL RBC 4.83 (4.30-5.90) m/uL Hgb 15.7 D (13.0-17.5) gm/dL Hct 46.9 (39.0-53.0) % MCV 97.0 D (80.0-100.0) fL MCH 32.6 (25.0-35.0) pg MCHC 33.6 (31.0-37.0) g/dL RDW 13.1 (11.5-15.5) % Plt Count 203 (150-450) k/uL MPV 9.1 Neutrophils % 77 % Lymphocytes % 12 % Monocytes % 8 % Eosinophils % 1 % Basophils % 1 % Neutrophils # 7.1 (1.3-7.7) k/uL Lymphocytes # 1.1 (1.0-4.8) k/uL Monocytes # 0.7 (0-1.0) k/uL Eosinophils # 0.1 (0-0.7) k/uL Basophils # 0.1 (0-0.2) k/uL PT 11.8 (9.0-12.0) sec INR 1.2 H (<1.2) APTT 26.8 (22.0-30.0) sec Sodium 139 (137-145) mmol/L Potassium 4.9 (3.5-5.1) mmol/L Chloride 101 (98-107) mmol/L Carbon Dioxide 21 L (22-30) mmol/L Anion Gap 17 mmol/L BUN 13 (9-20) mg/dL Creatinine 0.73 (0.66-1.25) mg/dL Est GFR (CKD-EPI)AfAm >90 (>60 ml/min/1.73 sqM) Est GFR (CKD-EPI)NonAf >90 (>60 ml/min/1.73 sqM) Glucose 115 H (74-99) mg/dL Plasma Lactic Acid Kiel (0.7-2.0) mmol/L Calcium 9.0 (8.4-10.2) mg/dL Magnesium 1.8 (1.6-2.3) mg/dL Total Bilirubin 1.9 H (0.2-1.3) mg/dL AST 164 H (17-59) U/L ALT 50 H (4-49) U/L Alkaline Phosphatase 100 (38-126) U/L Troponin I (0.000-0.034) ng/mL Total Protein 8.6 H (6.3-8.2) g/dL Albumin 4.4 (3.5-5.0) g/dL Lipase 102 (23-300) U/L Serum Alcohol 95 mg/dL Blood Type Blood Type Recheck Bld Type Recheck Status Antibody Screen Spec Expiration Date 09/20/20 09/20/20 09/20/20 Range/Units 22:08 22:08 22:08 WBC (3.8-10.6) k/uL RBC (4.30-5.90) m/uL Hgb (13.0-17.5) gm/dL Hct (39.0-53.0) % MCV (80.0-100.0) fL MCH (25.0-35.0) pg MCHC (31.0-37.0) g/dL RDW (11.5-15.5) % Plt Count (150-450) k/uL MPV Neutrophils % % Lymphocytes % % Monocytes % % Eosinophils % % Basophils % % Neutrophils # (1.3-7.7) k/uL Lymphocytes # (1.0-4.8) k/uL Monocytes # (0-1.0) k/uL Eosinophils # (0-0.7) k/uL Basophils # (0-0.2) k/uL PT (9.0-12.0) sec INR (<1.2) APTT (22.0-30.0) sec Sodium (137-145) mmol/L Potassium (3.5-5.1) mmol/L Chloride (98-107) mmol/L Carbon Dioxide (22-30) mmol/L Anion Gap mmol/L BUN (9-20) mg/dL Creatinine (0.66-1.25) mg/dL Est GFR (CKD-EPI)AfAm (>60 ml/min/1.73 sqM) Est GFR (CKD-EPI)NonAf (>60 ml/min/1.73 sqM) Glucose (74-99) mg/dL Plasma Lactic Acid Kiel 6.5 H* (0.7-2.0) mmol/L Calcium (8.4-10.2) mg/dL Magnesium (1.6-2.3) mg/dL Total Bilirubin (0.2-1.3) mg/dL AST (17-59) U/L ALT (4-49) U/L Alkaline Phosphatase (38-126) U/L Troponin I <0.012 (0.000-0.034) ng/mL Total Protein (6.3-8.2) g/dL Albumin (3.5-5.0) g/dL Lipase (23-300) U/L Serum Alcohol mg/dL Blood Type A Negative Blood Type Recheck A Neg Bld Type Recheck Status No Antibody Screen NEGATIVE Spec Expiration Date 09/23/20202307 - EKG Data -: EKG Interpreted by [place] EKG Comments: EKG obtained at 2221 shows sinus tachycardia with a ventricular rate of 101, W[place] interval 148, QRS duration 90, QT 392, QTc 508. No evidence of ST elevation or depression. Disposition Clinical Impression: Hematemesis, Lactic acidosis Disposition: ADMITTED IP TO THIS [facility] Condition: Serious Decision to Admit Reason: Admit from EC Decision Date: 09/20/20 Decision Time: 23:09
[2020-09-20 22:28] LABS: ALT 50 U/L (4-49); AST 164 U/L (17-59); African American GFR (CKD) >90 (>60 ml/min/1.73 sqM); Albumin 4.4 g/dL (3.5-5.0); Alkaline Phosphatase 100 U/L (38-126); Anion Gap 17 mmol/L; Blood Urea Nitrogen 13 mg/dL (9-20); Carbon Dioxide 21 mmol/L (22-30); Chloride 101 mmol/L (98-107); Glucose 115 mg/dL (74-99); HGB 15.7 gm/dL (13.0-17.5); Lipase 102 U/L (23-300); Magnesium 1.8 mg/dL (1.6-2.3); Non-African American GFR(CKD) >90 (>60 ml/min/1.73 sqM); Potassium 4.9 mmol/L (3.5-5.1); Sodium 139 mmol/L (137-145); Total Bilirubin 1.9 mg/dL (0.2-1.3); Total Protein 8.6 g/dL (6.3-8.2)
[2020-09-20 22:33] LABS: Alcohol 95 mg/dL
[2020-09-20] MEDS ORDERED: SODIUM CHLORIDE 0.9% 1,000 ML IV ONE (22:50)
[2020-09-20 22:53] LABS: INR 1.2 (<1.2); Partial Thromboplastin Time 26.8 sec (22.0-30.0); Prothrombin Time 11.8 sec (9.0-12.0)
[2020-09-20] MEDS ORDERED: ONDANSETRON 4 MG/2 ML VIAL IVP PRN (23:07)
[2020-09-20] MEDS ORDERED: NALOXONE 0.4 MG/ML 1 ML VIAL IV PRN (23:07)
[2020-09-20] MEDS ORDERED: LORazepam 2 MG/ML INJ IV PRN ×2 (23:12)
[2020-09-20] MEDS ORDERED: THIAMINE 100 MG/ML 2 ML VIAL IM STA (23:12)
[2020-09-20] MEDS: THIAMINE 100 MG TAB PO SCH (23:44)
[2020-09-20] MEDS: LORazepam 2 MG/ML INJ IV PRN (23:45)
--- NOTE | 2020-09-21 01:53 | XR ---
EXAM: XR Chest, 1 View CLINICAL HISTORY: ITS.REASON XR Reason: NG Tube TECHNIQUE: Frontal view of the chest. COMPARISON: 08/07/2020 FINDINGS: Lungs: No consolidation or mass. Pleural space: No acute findings Heart: No cardiomegaly. Bones/joints: No acute findings. NG tube courses towards the stomach but the tip is not well characterized. IMPRESSION: NG tube courses towards the stomach but the tip is not well characterized. Consider KUB to see whether where the tip is.
[2020-09-21 04:08] LABS: HCT 38.6 % (39.0-53.0); MCH 33.2 pg (25.0-35.0); MCHC 33.8 g/dL (31.0-37.0); MCV 98.4 fL (80.0-100.0); Mean Platelet Volume 8.9; Platelet Count 135 k/uL (150-450); RBC 3.92 m/uL (4.30-5.90); WBC 8.9 k/uL (3.8-10.6)
[2020-09-21] MEDS: LORazepam 2 MG/ML INJ IV PRN ×2 (04:08→15:12)
[2020-09-21] MEDS: SODIUM CHLORIDE 0.9% 1,000 ML IV SCH ×2 (04:11→18:09)
[2020-09-21] MEDS: THIAMINE 100 MG TAB PO SCH ×2 (08:35→17:09)
--- NOTE | 2020-09-21 09:23 | XR ---
EXAMINATION TYPE: XR chest 1V portable DATE OF EXAM: 09/21/2020 COMPARISON: Prior chest x-ray 09/21/2020 HISTORY: NG tube placement TECHNIQUE: Single frontal view of the chest is obtained. FINDINGS: NG tube is seen overlying the upper chest but is not well seen distally. No other signific ant interval change. IMPRESSION: NG tube is not seen distally.
[2020-09-21] MEDS: PANTOPRAZOLE 40 MG/10 ML VIAL IVP SCH (10:01)
[2020-09-21 10:57] LABS: HCT 37.5 % (39.0-53.0); HGB 12.5 gm/dL (13.0-17.5); MCH 32.9 pg (25.0-35.0); MCHC 33.4 g/dL (31.0-37.0); MCV 98.5 fL (80.0-100.0); Mean Platelet Volume 8.9; Platelet Count 136 k/uL (150-450); RBC 3.81 m/uL (4.30-5.90); RDW 13.1 % (11.5-15.5); WBC 9.9 k/uL (3.8-10.6)
[2020-09-21] MEDS ORDERED: ACETAMINOPHEN TAB 325 MG TAB PO PRN (11:09)
[2020-09-21] MEDS ORDERED: IBUPROFEN 400 MG TAB PO PRN (11:09)
[2020-09-21 14:47] LABS: HCT 37.7 % (39.0-53.0); HGB 12.4 gm/dL (13.0-17.5); MCH 32.6 pg (25.0-35.0); MCHC 32.9 g/dL (31.0-37.0); Mean Platelet Volume 8.9; Platelet Count 126 k/uL (150-450); RBC 3.81 m/uL (4.30-5.90); RDW 13.5 % (11.5-15.5); WBC 8.9 k/uL (3.8-10.6)
[2020-09-21] MEDS ORDERED: INFLUENZA VACCINE (6 MOS+) 60 MCG/0.5 ML SYRINGE IM ONE (17:52)
[2020-09-21 18:31] LABS: HCT 36.9 % (39.0-53.0); HGB 12.4 gm/dL (13.0-17.5); MCH 32.9 pg (25.0-35.0); MCHC 33.7 g/dL (31.0-37.0); MCV 97.7 fL (80.0-100.0); Mean Platelet Volume 8.8; Platelet Count 112 k/uL (150-450); RBC 3.77 m/uL (4.30-5.90); RDW 13.1 % (11.5-15.5); WBC 8.9 k/uL (3.8-10.6)
--- NOTE | 2020-09-21 20:11 | HP ---
HISTORY AND PHYSICAL This is a 59-year-old white male who came to the emergency room with coffee-ground emesis. He has been drinking 2 pints of alcohol a day. Coffee-ground emesis, dizziness, weakness. Bowel movement today. He has had NG tube placement today and he coughed it out. He says he pulled it out himself. He is on CIWA protocol. Hemoglobin has been stable through the day. Waiting for GI to do an EGD and colonoscopy, which I think they are planning. Otherwise, he feels pretty good. HOME MEDICINES: Tylenol, Motrin, thiamine, Lamictal. ALLERGIES: NO KNOWN DRUG ALLERGIES. REVIEW OF SYSTEMS: Fourteen-point review of systems negative except for mentioned in HPI. PAST MEDICAL HISTORY: Alcoholism, sleep apnea, hypertension, anxiety, marijuana abuse. PAST SURGICAL HISTORY: Cholecystectomy, hernia surgery. FAMILY HISTORY: Mother with musculoskeletal disorder. Father with atrial fibrillation, diabetes mellitus. PHYSICAL EXAMINATION: Blood pressure 144/102, respiratory rate 18 to 22, temperature 98.3, pulse 114, oxygenation 97. ENDOCRINE: BMI is over 40. Pupils equal, round, reactive to light and accommodation. CARDIOVASCULAR: S1, S2. Abdomen is distended due to obesity. NEUROLOGIC: Cranial nerves intact. PSYCH: Fair mood and affect. SKIN: Warm, dry. No rash. ASSESSMENT: 1. Acute coffee-ground emesis; possible gastrointestinal bleed versus esophageal varices versus gastritis. 2. Alcoholism with alcohol intoxication and alcohol dependence. Continue with CIWA protocol. Wait for GI consultation for possible EGD and colonoscopy. Replace electrolytes as needed. Continue CIWA protocol. MMODL / IJN: [id number] /
[2020-09-22 00:30] LABS: HCT 35.9 % (39.0-53.0); MCH 32.7 pg (25.0-35.0); MCHC 33.4 g/dL (31.0-37.0); Mean Platelet Volume 9.9; Platelet Count 110 k/uL (150-450); RBC 3.66 m/uL (4.30-5.90); RDW 13.5 % (11.5-15.5); WBC 7.4 k/uL (3.8-10.6)
[2020-09-22] MEDS: SODIUM CHLORIDE 0.9% 1,000 ML IV SCH ×2 (02:51→08:27)
[2020-09-22] MEDS: LORazepam 2 MG/ML INJ IV PRN ×2 (05:54→09:53)
[2020-09-22 07:46] LABS: Basophils % (A) 1 %; Eosinophils # (A) 0.2 k/uL (0-0.7); Eosinophils % (A) 2 %; HCT 35.2 % (39.0-53.0); HGB 11.7 gm/dL (13.0-17.5); Lymphocytes # (A) 1.2 k/uL (1.0-4.8); Lymphocytes % (A) 18 %; MCH 32.7 pg (25.0-35.0); MCHC 33.2 g/dL (31.0-37.0); MCV 98.6 fL (80.0-100.0); Mean Platelet Volume 8.9; Monocytes # (A) 0.5 k/uL (0-1.0); Monocytes % (A) 7 %; Neutrophils # (A) 4.9 k/uL (1.3-7.7); Neutrophils % (A) 71 %; Platelet Count 106 k/uL (150-450); RBC 3.57 m/uL (4.30-5.90); RDW 13.1 % (11.5-15.5); WBC 6.8 k/uL (3.8-10.6)
[2020-09-22] MEDS: THIAMINE 100 MG TAB PO SCH ×2 (08:22→17:10)
[2020-09-22] MEDS: PANTOPRAZOLE 40 MG/10 ML VIAL IVP SCH (08:24)
[2020-09-22] MEDS ORDERED: lamoTRIgine 25 MG TAB PO SCH (09:00)
--- NOTE | 2020-09-22 09:38 | CONS ---
CONSULTATION DATE OF CONSULTATION: 09/21/2020 REQUESTING PHYSICIAN: Dr. Lee Carrington. REASON FOR CONSULTATION: Acute upper gastrointestinal bleed. HISTORY OF PRESENT ILLNESS: The patient is a 59-year-old pleasant white male came into the emergency room this morning complaining of coffee-ground emesis for the last 2 day's duration. He had at least 7 or 8 of these episodes associated with some dizziness, abdominal discomfort and came to the emergency room and subsequently admitted to the hospital for further evaluation. Patient has history of heavy alcohol abuse and he has been drinking for more than 40 years. He denies any NSAID use. No prior history of peptic ulcer disease. He had an upper endoscopy several years ago. In the emergency room he had a hemoglobin of 12.5 g/dL. PAST MEDICAL HISTORY: Significant for heavy alcohol abuse, anxiety, depression. MEDICATIONS: Tylenol, Lamictal, vitamin B1. No known drug allergies. PAST SURGICAL HISTORY: Cholecystectomy, hernia repair. FAMILY HISTORY: Mother had some musculoskeletal disorder. Father had diabetes mellitus. REVIEW OF SYSTEMS: CARDIOPULMONARY: No chest pain or shortness of breath. GI: mentioned earlier. : No dysuria, hematuria. MUSCULOSKELETAL Unremarkable. SKIN: Unremarkable. ENDOCRINE: Unremarkable. PSYCHIATRIC: Unremarkable. NEUROLOGY: Unremarkable. ENT/VISION: Unremarkable. CONSTITUTIONAL: No recent weight loss. No fever, chills, night sweats. PHYSICAL EXAMINATION: Blood pressure 116/72, pulse 92, temperature 98. Examination unremarkable, conjunctive are pink, sclerae nonicteric, oral cavity no lesions. NECK: No JVD or lymph node enlargement. CHEST: Clear to auscultation. HEART: Regular rate and rhythm. ABDOMEN: Slightly distended. There was minimal tenderness in the epigastric area. Rest of the abdomen was benign. Bowel sounds are positive. EXTREMITIES: No pedal edema. SKIN: No rashes. NEUROLOGIC: Alert and oriented x3. No focal deficits. LABS: WBC 9.2, hemoglobin 15.7, platelets 203. Hemoglobin dropped to 12.4, platelets are down to 112. PT, INR 1.2. AST and ALT 164 and 50 respectively, T bilirubin 1.9, alkaline phosphatase 100, lactic acid was 6.5 and is down to 1.8. Serum alcohol level was 95. IMPRESSION: 1. Acute upper gastrointestinal bleed in this patient with history of heavy alcohol abuse. He had several episodes of coffee-ground emesis. No similar symptoms in the past. Denies any prior history of peptic ulcer disease. Hemoglobin dropped from 15-12 g/dL. Has an NG tube in place which he accidently pulled out about an hour ago and there was coffee-ground material in the NG tube. Clinically doing well and the nausea, vomiting has resolved. 2. Heavy alcohol abuse. 3. Elevated LFTs with AST more than ALT, all indicative of chronic alcoholic liver disease. 4. Thrombocytopenia, probably related to underlying chronic liver disease. RECOMMENDATIONS: 1. Keep the NG tube out. 2. Start him on a clear liquid diet. 3. Protonix 40 mg twice daily. 4. N.p.o. after midnight. 5. We will proceed with an upper endoscopy tomorrow. Discussed with the patient risks, benefits and complications and he is agreeable to it. Thank you for this consultation. SABINA / HOMERO: [id number] /
[2020-09-22 12:40] LABS: African American GFR (CKD) 113.3 (60.0-200.0); Albumin 3.2 g/dL (3.80-4.90); Albumin/Globulin Ratio 1.39 (1.60-3.17); Anion Gap 10.8 mmol/L (4.00-12.00); Calcium 8.2 mg/dL (8.7-10.3); Carbon Dioxide 24.2 mmol/L (21.6-31.8); Globulin 2.3 g/dL (1.6-3.3); Non-African American GFR(CKD) 97.8 (60.0-200.0); Potassium 3.9 mmol/L (3.5-5.5); Total Bilirubin 1.3 mg/dL (0.2-1.2); Total Protein 5.5 g/dL (6.2-8.2)
[2020-09-22] MEDS ORDERED: PROPOFOL 10 MG/ML 20 ML VIAL IV ONE (13:34)
[2020-09-22] MEDS ORDERED: LACTATED RINGERS 1,000 ML IV ONE (13:38)
--- NOTE | 2020-09-22 13:46 | P.PCN ---
Date of Procedure: 09/22/20 Procedure(s) Performed: BRIEF HISTORY: Patient is a 59-year-old, pleasant, white male admitted hospital with acute upper GI bleed. He had several episodes of coffee-ground emesis for the last 2 days. Hemoglobin is 11.5 g/dL. History of heavy alcohol abuse. He scheduled for an upper endoscopy to evaluate the source of upper GI bleed. PROCEDURE PERFORMED: Esophagogastroduodenoscopy with biopsy. PREOPERATIVE DIAGNOSIS: Acute GI bleed. IV sedation per anesthesia. PROCEDURE: After informed consent was obtained, the patient was brought into the endoscopy unit. IV sedation was administered by Anesthesia under continuous monitoring. Initially the Olympus GIF-140 video endoscope was inserted into the mouth. Esophagus intubated without any difficulty. It was gradually advanced into the stomach and duodenum and carefully examined. The bulb and the second part of the duodenum appeared normal. The scope at this time was withdrawn to the stomach, adequately insufflated with air, and upon careful examination, mucosa of the antrum, body and mild diffuse gastritis and biopsies were done from this area. The, cardia and the fundus appeared normal. The scope was then withdrawn into the esophagus. Small sliding-type well hernia noted. The The GE junction was located at 38 cm from the incisors. It was a long segment of Li's esophagus extending from 30-38 cm from the incisors and biopsies were done from this area. There was small esophageal varices noted in the distal esophagus. No active bleeding noted. Th rest of the e esophagus appeared normal. There were no erosions or ulcerations seen and the patient tolerated the procedure well. IMPRESSION: 1. Small distal esophageal varices with no active bleeding. 2. 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 Mild antral gastritis 4. Small hiatal hernia. RECOMMENDATIONS: The findings of this examination were discussed with the patient . He will eventually on Protonix 40 mg twice daily. Await biopsy results. Diet will be advanced as tolerated. Continue Protonix 40 mg twice daily..
[2020-09-22 15:18] VITALS: BP 133/89; PULSE 87; RESP 17; TEMP 98.2
[2020-09-22 15:36] VITALS: BMI 37.5
== END 2020-09-22 19:35 | disposition home or self-care (01) | DRG 432 ==
LOC: EC 21:29 → 6NMEDSUR 22:59 → 4SSUR 09-21 16:49 → OBSVTOIN 09-22 09:01
PROVIDERS: ADMIT Family Medicine; ATTEND Family Medicine
PROC: 0D9670Z Drainage of Stomach with Drainage Device, Via Natural or Artificial Opening (ICD-10-PCS; 2020-09-21)
PROC: 0DB78ZX Excision of Stomach, Pylorus, Via Natural or Artificial Opening Endoscopic, Diagnostic (ICD-10-PCS; principal; 2020-09-22 13:05)
PROC: 0DB28ZX Excision of Middle Esophagus, Via Natural or Artificial Opening Endoscopic, Diagnostic (ICD-10-PCS; principal; 2020-09-22 13:05)
DX: K70.9 Alcoholic liver disease, unspecified (principal); I85.11 Secondary esophageal varices with bleeding; E87.2 Acidosis; D69.59 Other secondary thrombocytopenia; F10.229 Alcohol dependence with intoxication, unspecified; Y90.4 Blood alcohol level of 80-99 mg/100 ml; K22.70 Barrett's esophagus without dysplasia; K29.70 Gastritis, unspecified, without bleeding; K44.9 Diaphragmatic hernia without obstruction or gangrene; G47.30 Sleep apnea, unspecified; I10 Essential (primary) hypertension; Z79.899 Other long term (current) drug therapy; Z90.49 Acquired absence of other specified parts of digestive tract; Z87.19 Personal history of other diseases of the digestive system; Z86.59 Personal history of other mental and behavioral disorders; Z98.890 Other specified postprocedural states; Z82.49 Family history of ischemic heart disease and other diseases of the circulatory system; Z83.3 Family history of diabetes mellitus
CPT/HCPCS: 36415; 43239; 71045; 80053; 80320; 83605; 83690; 83735; 84484; 85025; 85027; 85610; 85730; 86850; 86900; 86901; 88305; 93005; 96361; 96372; 96374; 96375; 99285

== ENCOUNTER 2020-10-27 07:43 | Day surgery (SDC) | payer OTHER ==
[2020-10-25 11:44] VITALS: BMI 39.3
[~2020-10-27 07:43] MED LIST: LACTATED RINGERS 1,000 ML IV SCH
[2020-10-27 08:16] VITALS: TEMP 98.1
[2020-10-27] MEDS ORDERED: LIDOCAINE 1% (10MG/ML) FOR IV START INTRADERMA ONE (08:20)
[2020-10-27] MEDS ORDERED: PROPOFOL 10 MG/ML 20 ML VIAL IV ONE (09:23)
--- NOTE | 2020-10-27 09:38 | P.PCN ---
Date of Procedure: 10/27/20 Procedure(s) Performed: BRIEF HISTORY: Patient is a 60-year-old pleasant male scheduled for an elective colonoscopy as a part of evaluation of prior history of colon polyps. Last colonoscopy was 5 years ago. PROCEDURE PERFORMED: Colonoscopy with biopsy. PREOPERATIVE DIAGNOSIS: History of colon polyps. IV sedation per Anesthesia. PROCEDURE: After informed consent was obtained, the patient, was brought into the endoscopy unit. IV sedation was administered by Anesthesia under continuous monitoring. Digital rectal examination was normal. Initially the Olympus CF-160 flexible video colonoscope was then inserted in the rectum, gradually advanced into the cecum without any difficulty. Careful examination was performed as the scope was gradually being withdrawn. Ileocecal valve and the appendiceal orifice were visualized and appeared normal. Prep was fair.. Mucosa of the cecum, appeared normal. Ascending colon there was a 3 mm polyp that was removed by cold biopsy. Rest of the ascending colon, transverse colon, descending colon, sigmoid colon, and rectum appeared normal. Moderate left-sided diverticulosis seen. Retroflexion was performed in the rectum and no lesions were seen. The patient tolerated the procedure well. IMPRESSION: 3 mm ascending colon polyp status post removal by cold biopsy Moderate sigmoid diverticulosis RECOMMENDATIONS: Findings of this examination were discussed with the patient well as his family. He was advised to follow with the biopsy results and have a repeat colonoscopy in 5 years..
[2020-10-27 10:07] VITALS: BP 124/78; PULSE 73; RESP 16
== END 2020-10-27 10:42 | disposition home or self-care (01) ==
LOC: ORWHC2ENDO 07:43
PROVIDERS: ATTEND Internal Medicine Gastroenterology
DX: Z12.11 Encounter for screening for malignant neoplasm of colon (principal); K51.40 Inflammatory polyps of colon without complications; K57.30 Diverticulosis of large intestine without perforation or abscess without bleeding; Z86.010 Personal history of colon polyps; Z79.899 Other long term (current) drug therapy; I10 Essential (primary) hypertension; G47.33 Obstructive sleep apnea (adult) (pediatric); Z99.89 Dependence on other enabling machines and devices; Z91.19 Patient's noncompliance with other medical treatment and regimen; F41.9 Anxiety disorder, unspecified; K21.9 Gastro-esophageal reflux disease without esophagitis
CPT/HCPCS: 88305; 45380; J2704

== ENCOUNTER 2021-06-01 18:25 | Emergency (ER) | payer OTHER ==
[~2021-06-01 18:25] MED LIST changes: -LACTATED RINGERS 1,000 ML IV SCH; +THIAMINE 100 MG TAB PO SCH
[2021-06-01 18:39] VITALS: RESP 18; TEMP 98.4
--- NOTE | 2021-06-01 18:59 | ED ---
GI Bleed HPI - General Chief complaint: GI Bleed Stated complaint: GI bleed Time Seen by Provider: 06/01/21 18:42 Source: patient Mode of arrival: EMS Limitations: no limitations - History of Present Illness Initial comments: Is a 60-year-old male with a history of alcohol abuse, esophageal varices, gastritis who presents emergency department for nausea, vomiting, and hematemesis. The patient states that he's been vomiting intermittently for the last month or so. He states that he did start drinking approximately in November again this year. He states he has frequent vomiting however this morning noted that he had some dark-appearing vomit that he was concerned it was blood. He states this occurred twice today. He also gets to some dark stools however no diarrhea. No significant abdominal pain. Denies any lightheadedness, chest pain, shortness of breath. 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 Jiang here in the past and had a scope done. No other acute complaints. - Related Data Home Medications Medication Instructions Recorded Confirmed Pantoprazole [Protonix] 40 mg PO DAILY PRN 10/25/20 06/01/21 Allergies Allergy/AdvReac Type Severity Reaction Status Date / Time No Known Allergies Allergy Verified 06/01/21 19:35 Review of Systems ROS Statement: Those systems with pertinent positive or pertinent negative responses have been documented in the HPI. ROS Other: All systems not noted in ROS Statement are negative. Past Medical History Past Medical History: GERD/Reflux, GI Bleed, Hypertension, Pneumonia, Sleep Apnea/CPAP/BIPAP Additional Past Medical History / Comment(s): Pt admitted to [facility] on 08/07/20 with hematemesis/alcohol intoxication/L hip pain. Other hx: Pt states he took himself off his antihypertensive medication, MARIELLE without device, bronchitis, L hip pain. History of Any Multi-Drug Resistant Organisms: None Reported Past Surgical History: Cholecystectomy, Hernia Repair Additional Past Surgical History / Comment(s): R inguinal hernia repair, EGD, colonoscopy. Additional Past Anesthesia/Blood Transfusion Reaction / Comment(s): Pt states he was told after his EGD that he had been a difficult intubation. Past Psychological History: Anxiety Smoking Status: Never smoker Past Alcohol Use History: Abuse, Daily, Heavy Past Drug Use History: Marijuana - Past Family History Mother Family Medical History: Musculoskeletal Disorder Additional Family Medical History / Comment(s): Mother is . She had MS. Father Family Medical History: AFIB, Diabetes Mellitus General Exam - General Exam Comments Initial Comments: Constitutional: Awake alert Appears comfortable Head: Normocephalic atraumatic Eyes: no conjunctival injection No scleral icterus EOMI, no conjunctival pallor Neck: No JVD Supple Heart: Regular rate rhythm normal S1-S2 no murmurs Lungs: Clear to auscultation bilaterally No wheezing No rales Abdomen: Soft nondistended nontender, dark stool on rectal Extremities: Non edematous DP pulses intact Radial pulses intact Neuro: A&Ox3 No focal neurologic deficits, patient does appear intoxicated Psych: Appropriate mood and affect Limitations: no limitations Course Vital Signs 06/01/21 06/01/21 18:34 20:29 Temperature 98.4 F Pulse Rate 96 90 Respiratory 18 18 Rate Blood Pressure 141/82 140/82 O2 Sat by Pulse 94 L 95 Oximetry - Reevaluation(s) Reevaluation #1: 06/01/21 21:46 EKG showing normal sinus rhythm with a rate of 80. There is no abnormal ST segment changes. Questionable T-wave inversion in V3. QTC 469. Other intervals normal. No ectopy. Medical Decision Making - Medical Decision Making Is a 6-year-old male presents emergency department for GI bleed. The patient does have a history of alcohol use. He noticed some dark blood vomit this morning and also has been having some dark stool. The patient does have black stool on rectal examination. No gross blood. The patient's vitals are stable. Hemoglobin was stable. He did have a mild lactic acidosis was given 1 L of fluid. Doubt sepsis at this time. Due to the patient's history of esophageal varices is can be monitored in the hospital for GI bleed. He was started on Protonix 40 [address] Carrington was updated and accepts the patient for admission. - Lab Data Result diagrams: 06/01/21 18:43 06/01/21 18:43 Lab Results 06/01/21 06/01/21 06/01/21 Range/Units 18:43 18:43 18:43 WBC 7.6 (3.8-10.6) k/uL RBC 4.18 L (4.30-5.90) m/uL Hgb 12.9 L (13.0-17.5) gm/dL Hct 40.1 (39.0-53.0) % MCV 96.0 (80.0-100.0) fL MCH 30.9 (25.0-35.0) pg MCHC 32.2 (31.0-37.0) g/dL RDW 14.6 (11.5-15.5) % Plt Count 113 L (150-450) k/uL MPV 10.2 Neutrophils % 76 % Lymphocytes % 14 % Monocytes % 7 % Eosinophils % 1 % Basophils % 1 % Neutrophils # 5.8 (1.3-7.7) k/uL Lymphocytes # 1.1 (1.0-4.8) k/uL Monocytes # 0.5 (0-1.0) k/uL Eosinophils # 0.1 (0-0.7) k/uL Basophils # 0.0 (0-0.2) k/uL PT (9.0-12.0) sec INR (<1.2) APTT (22.0-30.0) sec Sodium 144 (137-145) mmol/L Potassium 3.4 L (3.5-5.1) mmol/L Chloride 110 H (98-107) mmol/L Carbon Dioxide 23 (22-30) mmol/L Anion Gap 11 mmol/L BUN 11 (9-20) mg/dL Creatinine 0.56 L (0.66-1.25) mg/dL Est GFR (CKD-EPI)AfAm >90 (>60 ml/min/1.73 sqM) Est GFR (CKD-EPI)NonAf >90 (>60 ml/min/1.73 sqM) Glucose 98 (74-99) mg/dL Plasma Lactic Acid Kiel (0.7-2.0) mmol/L Calcium 8.3 L (8.4-10.2) mg/dL Magnesium 1.8 (1.6-2.3) mg/dL Total Bilirubin 1.1 (0.2-1.3) mg/dL AST 122 H (17-59) U/L ALT 48 (4-49) U/L Alkaline Phosphatase 100 (38-126) U/L Troponin I (0.000-0.034) ng/mL Total Protein 7.0 (6.3-8.2) g/dL Albumin 3.3 L (3.5-5.0) g/dL Lipase 28 (23-300) U/L Serum Alcohol 128 mg/dL Blood Type A Negative Blood Type Recheck A Neg Bld Type Recheck Status No Antibody Screen NEGATIVE Spec Expiration Date 06/04/2021230706/01/21 06/01/21 06/01/21 Range/Units 18:43 18:43 19:08 WBC (3.8-10.6) k/uL RBC (4.30-5.90) m/uL Hgb (13.0-17.5) gm/dL Hct (39.0-53.0) % MCV (80.0-100.0) fL MCH (25.0-35.0) pg MCHC (31.0-37.0) g/dL RDW (11.5-15.5) % Plt Count (150-450) k/uL MPV Neutrophils % % Lymphocytes % % Monocytes % % Eosinophils % % Basophils % % Neutrophils # (1.3-7.7) k/uL Lymphocytes # (1.0-4.8) k/uL Monocytes # (0-1.0) k/uL Eosinophils # (0-0.7) k/uL Basophils # (0-0.2) k/uL PT 13.0 H (9.0-12.0) sec INR 1.3 H (<1.2) APTT 25.8 (22.0-30.0) sec Sodium (137-145) mmol/L Potassium (3.5-5.1) mmol/L Chloride (98-107) mmol/L Carbon Dioxide (22-30) mmol/L Anion Gap mmol/L BUN (9-20) mg/dL Creatinine (0.66-1.25) mg/dL Est GFR (CKD-EPI)AfAm (>60 ml/min/1.73 sqM) Est GFR (CKD-EPI)NonAf (>60 ml/min/1.73 sqM) Glucose (74-99) mg/dL Plasma Lactic Acid Kiel 2.7 H* (0.7-2.0) mmol/L Calcium (8.4-10.2) mg/dL Magnesium (1.6-2.3) mg/dL Total Bilirubin (0.2-1.3) mg/dL AST (17-59) U/L ALT (4-49) U/L Alkaline Phosphatase (38-126) U/L Troponin I <0.012 (0.000-0.034) ng/mL Total Protein (6.3-8.2) g/dL Albumin (3.5-5.0) g/dL Lipase (23-300) U/L Serum Alcohol mg/dL Blood Type Blood Type Recheck Bld Type Recheck Status Antibody Screen Spec Expiration Date Disposition Clinical Impression: GI bleed Disposition: ADMITTED IP TO THIS [facility] Condition: Stable Referrals: Lee Carrington MD [Primary Care Provider] - 1-2 days
[2021-06-01] MEDS ORDERED: ONDANSETRON 4 MG/2 ML VIAL IVP STA (19:00)
[2021-06-01] MEDS ORDERED: SODIUM CHLORIDE 0.9% 1,000 ML IV ONE (19:00)
[2021-06-01] MEDS ORDERED: PANTOPRAZOLE 40 MG/10 ML VIAL IVP STA (19:15)
[2021-06-01 19:39] LABS: Basophils % (A) 1 %; Eosinophils # (A) 0.1 k/uL (0-0.7); Eosinophils % (A) 1 %; HCT 40.1 % (39.0-53.0); HGB 12.9 gm/dL (13.0-17.5); Lymphocytes # (A) 1.1 k/uL (1.0-4.8); Lymphocytes % (A) 14 %; MCH 30.9 pg (25.0-35.0); MCHC 32.2 g/dL (31.0-37.0); Mean Platelet Volume 10.2; Monocytes # (A) 0.5 k/uL (0-1.0); Monocytes % (A) 7 %; Neutrophils # (A) 5.8 k/uL (1.3-7.7); Neutrophils % (A) 76 %; Platelet Count 113 k/uL (150-450); RBC 4.18 m/uL (4.30-5.90); RDW 14.6 % (11.5-15.5); WBC 7.6 k/uL (3.8-10.6)
[2021-06-01 19:51] LABS: Potassium 3.4 mmol/L (3.5-5.1)
[2021-06-01 19:52] LABS: ALT 48 U/L (4-49); AST 122 U/L (17-59); African American GFR (CKD) >90 (>60 ml/min/1.73 sqM); Albumin 3.3 g/dL (3.5-5.0); Alkaline Phosphatase 100 U/L (38-126); Anion Gap 11 mmol/L; Blood Urea Nitrogen 11 mg/dL (9-20); Calcium 8.3 mg/dL (8.4-10.2); Carbon Dioxide 23 mmol/L (22-30); Chloride 110 mmol/L (98-107); Glucose 98 mg/dL (74-99); Lipase 28 U/L (23-300); Magnesium 1.8 mg/dL (1.6-2.3); Non-African American GFR(CKD) >90 (>60 ml/min/1.73 sqM); Sodium 144 mmol/L (137-145); Total Bilirubin 1.1 mg/dL (0.2-1.3)
[2021-06-01 19:59] LABS: Alcohol 128 mg/dL
[2021-06-01 20:05] LABS: INR 1.3 (<1.2); Partial Thromboplastin Time 25.8 sec (22.0-30.0)
[2021-06-01] MEDS ORDERED: PANTOPRAZOLE 40 MG/10 ML VIAL IVP SCH (21:00)
[2021-06-01] MEDS ORDERED: NALOXONE 0.4 MG/ML 1 ML VIAL IV PRN (21:44)
[2021-06-01] MEDS ORDERED: SODIUM CHLORIDE 0.9% 1,000 ML IV SCH (21:45)
[2021-06-01] MEDS ORDERED: LORazepam 2 MG/ML INJ IV PRN ×3 (21:52)
[2021-06-01] MEDS ORDERED: THIAMINE 100 MG/ML 2 ML VIAL IM STA (21:52)
[2021-06-01 23:56] VITALS: BP 141/86; PULSE 78
== END 2021-06-01 23:47 | disposition other institution (70) ==
LOC: EC 18:25
DX: K92.2 Gastrointestinal hemorrhage, unspecified (principal); R11.2 Nausea with vomiting, unspecified; E87.2 Acidosis; I10 Essential (primary) hypertension; K21.9 Gastro-esophageal reflux disease without esophagitis
CPT/HCPCS: 36415; 93005; 86900; 86901; 80053; 83605; 83690; 83735; 84484; 85025; 85610; 85730; 86850; 82272; 99285; 96374; 96376; 96375; 96361; 96372; G0480; J2060; J3411; J2405; C9113; 80320

== ENCOUNTER 2021-06-28 12:02 | Inpatient (IN) | payer OTHER ==
[2021-06-28] MEDS ORDERED: PANTOPRAZOLE 40 MG/10 ML VIAL IVP ONE (13:18)
[2021-06-28] MEDS ORDERED: OCTREOTIDE 100 MCG/ML INJ IVP STA (13:19)
[2021-06-28] MEDS ORDERED: ONDANSETRON 4 MG/2 ML VIAL IVP STA (13:22)
[2021-06-28] MEDS ORDERED: SODIUM CHLORIDE 0.9% 500 ML 500 ML IV ONE (13:22)
[2021-06-28] MEDS ORDERED: SODIUM CHLORIDE 0.9% 1,000 ML IV ONE ×2 (13:22→15:43)
--- NOTE | 2021-06-28 13:30 | ED ---
General Adult HPI - General Chief complaint: Abdominal Pain Stated complaint: hematemesis Time Seen by Provider: 06/28/21 12:50 Source: patient, RN notes reviewed, old records reviewed Mode of arrival: ambulatory Limitations: no limitations - History of Present Illness Initial comments: This is a 60-year-old male who presents emergency pertinent stating that he is an alcoholic. Patient states her last couple of days she's been vomiting up blood and he has had this occur in the past. Patient states that he last drank this morning. Patient denies any specific abdominal pain. But he states he is very nauseated. Patient denies lightheadedness or dizziness. Patient denies shortness of breath or difficulty breathing. Patient denies any chest pain or palpitations. Patient denies any black or bloody stools. - Related Data Home Medications Medication Instructions Recorded Confirmed Pantoprazole [Protonix] 40 mg PO DAILY PRN 10/25/20 06/28/21 Allergies Allergy/AdvReac Type Severity Reaction Status Date / Time No Known Allergies Allergy Verified 06/28/21 14:34 Review of Systems ROS Statement: Those systems with pertinent positive or pertinent negative responses have been documented in the HPI. ROS Other: All systems not noted in ROS Statement are negative. Past Medical History Past Medical History: GERD/Reflux, GI Bleed, Hypertension, Pneumonia, Sleep Ap robert/CPAP/BIPAP Additional Past Medical History / Comment(s): Pt admitted to [facility] on 08/07/20 with hematemesis/alcohol intoxication/L hip pain. Other hx: Pt states he took himself off his antihypertensive medication, MARIELLE without device, bronchitis, L hip pain. History of Any Multi-Drug Resistant Organisms: None Reported Past Surgical History: Cholecystectomy, Hernia Repair Additional Past Surgical History / Comment(s): R inguinal hernia repair, EGD, colonoscopy. Additional Past Anesthesia/Blood Transfusion Reaction / Comment(s): Pt states he was told after his EGD that he had been a difficult intubation. Past Psychological History: Anxiety Smoking Status: Never smoker Past Alcohol Use History: Abuse, Daily, Heavy Past Drug Use History: Marijuana - Past Family History Mother Family Medical History: Musculoskeletal Disorder Additional Family Medical History / Comment(s): Mother is . She had MS. Father Family Medical History: AFIB, Diabetes Mellitus General Exam - General Exam Comments Initial Comments: GENERAL: Patient is well-developed and well-nourished. Patient is nontoxic and well- hydrated and is in mild distress. ENT: Neck is soft and supple. No significant lymphadenopathy is noted. Oropharynx is clear. Moist mucous membranes. Neck has full range of motion without eliciting any pain. EYES: The sclera were anicteric and conjunctiva were pink and moist. Extraocular movements were intact and pupils were equal round and reactive to light. Eyelids were unremarkable. PULMONARY: Unlabored respirations. Good breath sounds bilaterally. No audible rales rhonchi or wheezing was noted. CARDIOVASCULAR: Patient is tachycardic and regular. ABDOMEN: Soft and nontender with normal bowel sounds. SKIN: Skin is clear with no lesions or rashes and otherwise unremarkable. NEUROLOGIC: Patient is alert and oriented x3. Cranial nerves II through XII are grossly intact. Motor and sensory are also intact. Normal speech, volume and content. Symmetrical smile. MUSCULOSKELETAL: Normal extremities with adequate strength and full range of motion. LYMPHATICS: No significant lymphadenopathy is noted PSYCHIATRIC: Normal psychiatric evaluation. Limitations: no limitations Course Vital Signs 06/28/21 06/28/21 12:50 14:23 Temperature 98.0 F Pulse Rate 107 H 81 Respiratory 20 20 Rate Blood Pressure 128/71 106/67 O2 Sat by Pulse 99 94 L Oximetry Medical Decision Making - Medical Decision Making Patient did vomit once in the ER was bright red blood probably 100 miles. Patient received octreotide in the emergency department as well as Protonix. Patient was typed and screened. I spoke with Dr. Carrington he agreed to admit the patient admitted the patient wrote admitting orders I consulted - Lab Data Result diagrams: 06/28/21 13:22 06/28/21 13:22 Lab Results 06/28/21 06/28/21 06/28/21 Range/Units 13:22 13:22 13:22 WBC 9.1 (3.8-10.6) k/uL RBC 4.11 L (4.30-5.90) m/uL Hgb 13.0 (13.0-17.5) gm/dL Hct 39.3 (39.0-53.0) % MCV 95.7 (80.0-100.0) fL MCH 31.7 (25.0-35.0) pg MCHC 33.1 (31.0-37.0) g/dL RDW 15.2 (11.5-15.5) % Plt Count 171 D (150-450) k/uL MPV 9.4 Neutrophils % 78 % Lymphocytes % 12 % Monocytes % 7 % Eosinophils % 1 % Basophils % 1 % Neutrophils # 7.0 (1.3-7.7) k/uL Lymphocytes # 1.1 (1.0-4.8) k/uL Monocytes # 0.7 (0-1.0) k/uL Eosinophils # 0.1 (0-0.7) k/uL Basophils # 0.1 (0-0.2) k/uL PT 12.6 H (9.0-12.0) sec INR 1.2 H (<1.2) APTT 25.3 (22.0-30.0) sec Sodium 142 (137-145) mmol/L Potassium 3.9 (3.5-5.1) mmol/L Chloride 108 H (98-107) mmol/L Carbon Dioxide 23 (22-30) mmol/L Anion Gap 11 mmol/L BUN 18 (9-20) mg/dL Creatinine 0.56 L (0.66-1.25) mg/dL Est GFR (CKD-EPI)AfAm >90 (>60 ml/min/1.73 sqM) Est GFR (CKD-EPI)NonAf >90 (>60 ml/min/1.73 sqM) Glucose 126 H (74-99) mg/dL Plasma Lactic Acid Kiel (0.7-2.0) mmol/L Calcium 8.8 (8.4-10.2) mg/dL Magnesium 1.9 (1.6-2.3) mg/dL Total Bilirubin 1.2 (0.2-1.3) mg/dL AST 120 H (17-59) U/L ALT 46 (4-49) U/L Alkaline Phosphatase 90 (38-126) U/L Total Protein 7.4 (6.3-8.2) g/dL Albumin 3.3 L (3.5-5.0) g/dL Amylase 55 (30-110) U/L Lipase 70 (23-300) U/L Serum Alcohol 11 mg/dL Blood Type Blood Type Recheck Bld Type Recheck Status Antibody Screen Spec Expiration Date 06/28/21 06/28/21 Range/Units 13:22 13:22 WBC (3.8-10.6) k/uL RBC (4.30-5.90) m/uL Hgb (13.0-17.5) gm/dL Hct (39.0-53.0) % MCV (80.0-100.0) fL MCH (25.0-35.0) pg MCHC (31.0-37.0) g/dL RDW (11.5-15.5) % Plt Count (150-450) k/uL MPV Neutrophils % % Lymphocytes % % Monocytes % % Eosinophils % % Basophils % % Neutrophils # (1.3-7.7) k/uL Lymphocytes # (1.0-4.8) k/uL Monocytes # (0-1.0) k/uL Eosinophils # (0-0.7) k/uL Basophils # (0-0.2) k/uL PT (9.0-12.0) sec INR (<1.2) APTT (22.0-30.0) sec Sodium (137-145) mmol/L Potassium (3.5-5.1) mmol/L Chloride (98-107) mmol/L Carbon Dioxide (22-30) mmol/L Anion Gap mmol/L BUN (9-20) mg/dL Creatinine (0.66-1.25) mg/dL Est GFR (CKD-EPI)AfAm (>60 ml/min/1.73 sqM) Est GFR (CKD-EPI)NonAf (>60 ml/min/1.73 sqM) Glucose (74-99) mg/dL Plasma Lactic Acid Kiel 1.9 (0.7-2.0) mmol/L Calcium (8.4-10.2) mg/dL Magnesium (1.6-2.3) mg/dL Total Bilirubin (0.2-1.3) mg/dL AST (17-59) U/L ALT (4-49) U/L Alkaline Phosphatase (38-126) U/L Total Protein (6.3-8.2) g/dL Albumin (3.5-5.0) g/dL Amylase (30-110) U/L Lipase (23-300) U/L Serum Alcohol mg/dL Blood Type A Negative Blood Type Recheck A Neg Bld Type Recheck Status No Antibody Screen NEGATIVE Spec Expiration Date 07/01/20212321 Critical Care Time Critical Care Time: Yes Total Critical Care Time: 35 Disposition Clinical Impression: Alcohol abuse, Hematemesis Disposition: ADMITTED IP TO THIS HOSP Referrals: Lee Carrington MD [Primary Care Provider] - 1-2 days Time of Disposition: 15:43
[2021-06-28 13:56] LABS: Basophils # (A) 0.1 k/uL (0-0.2); Basophils % (A) 1 %; Eosinophils # (A) 0.1 k/uL (0-0.7); Eosinophils % (A) 1 %; HCT 39.3 % (39.0-53.0); Lymphocytes # (A) 1.1 k/uL (1.0-4.8); Lymphocytes % (A) 12 %; MCH 31.7 pg (25.0-35.0); MCHC 33.1 g/dL (31.0-37.0); MCV 95.7 fL (80.0-100.0); Mean Platelet Volume 9.4; Monocytes # (A) 0.7 k/uL (0-1.0); Monocytes % (A) 7 %; Neutrophils % (A) 78 %; RBC 4.11 m/uL (4.30-5.90); RDW 15.2 % (11.5-15.5); WBC 9.1 k/uL (3.8-10.6)
[2021-06-28 14:00] LABS: INR 1.2 (<1.2); Partial Thromboplastin Time 25.3 sec (22.0-30.0); Prothrombin Time 12.6 sec (9.0-12.0)
[2021-06-28] MEDS ORDERED: SODIUM CHLORIDE 0.9% 1,000 ML with MVI, ADULT NO.4 WITH VIT K 10 ML, THIAMINE 100 MG, F... IV ONE ×4 (14:00)
--- NOTE | 2021-06-28 14:05 | XR ---
EXAMINATION TYPE: XR KUB DATE OF EXAM: 06/28/2021 COMPARISON: NONE HISTORY: Pain TECHNIQUE: One view abdominal series FINDINGS: The osseous structures are intact. The bowel gas pattern is nonspecific. Lung bases are clear. Surg ical clips in the upper abdomen noted. Calcifications the pelvis or vascular. Arthropathy of the hips . IMPRESSION: 1. Nonspecific abdomen.
[2021-06-28 14:09] LABS: Platelet Count 171 k/uL (150-450)
[2021-06-28 14:22] LABS: ALT 46 U/L (4-49); AST 120 U/L (17-59); African American GFR (CKD) >90 (>60 ml/min/1.73 sqM); Albumin 3.3 g/dL (3.5-5.0); Alcohol 11 mg/dL; Alkaline Phosphatase 90 U/L (38-126); Amylase 55 U/L (30-110); Anion Gap 11 mmol/L; Blood Urea Nitrogen 18 mg/dL (9-20); Calcium 8.8 mg/dL (8.4-10.2); Carbon Dioxide 23 mmol/L (22-30); Chloride 108 mmol/L (98-107); Glucose 126 mg/dL (74-99); Lipase 70 U/L (23-300); Magnesium 1.9 mg/dL (1.6-2.3); Non-African American GFR(CKD) >90 (>60 ml/min/1.73 sqM); Potassium 3.9 mmol/L (3.5-5.1); Sodium 142 mmol/L (137-145); Total Bilirubin 1.2 mg/dL (0.2-1.3); Total Protein 7.4 g/dL (6.3-8.2)
[2021-06-28] MEDS ORDERED: THIAMINE 100 MG/ML 2 ML VIAL IM STA (15:45)
[2021-06-28] MEDS ORDERED: LORazepam 2 MG/ML INJ IV PRN ×2 (15:45)
--- NOTE | 2021-06-28 17:46 | HP ---
HISTORY AND PHYSICAL This is a 60-year-old white male who presented to the emergency room with alcoholic intake with vomiting blood. His hemoglobin has been stable. Due to severe abdominal pain and hematemesis he is going to be monitored overnight and treated per [facility] protocol for alcohol withdrawal. Denies any black or bloody stools. HOME MEDICINES: Protonix 40 mg daily. ALLERGIES: NEGATIVE. REVIEW OF SYSTEMS: Fourteen-point review of systems otherwise negative. PAST MEDICAL HISTORY: GERD, GI bleed, hypertension, pneumonia, sleep apnea, alcoholic intoxication. SURGERIES: Cholecystectomy, hernia repair, right inguinal hernia repair, EGD, colonoscopy. SOCIAL HISTORY: Daily heavy alcohol abuse, marijuana. FAMILY HISTORY: Mother with musculoskeletal disorder. Father with diabetes mellitus. PHYSICAL EXAMINATION: Vital signs stable. Afebrile. CARDIOVASCULAR: S1, S2. LUNGS: Clear. GI: Soft. HEMATOLOGY: Negative Homans. PSYCH: Fair mood and affect. ABDOMEN: Soft, nontender. LYMPH: No lymphadenopathy. Pupils equal, round, reactive to light and accommodation. Temperature 98, pulse 81-107, blood pressure 120s over 60s to 70s, respiratory rate 18- 20, O2 90% to 94%. BUN is 18, creatinine 0.96, sodium 142, potassium 3.9, hemoglobin 13, white count 9.1. ASSESSMENT: Alcohol withdrawal and alcohol intoxication, GI bleed with hematemesis. Get surgical consult. Monitor hemoglobins overnight. Possible discharge home once cleared. MMODL / IJN: [id number] /
[2021-06-28] MEDS: LORazepam 2 MG/ML INJ IV PRN (19:38)
[2021-06-28] MEDS: ONDANSETRON 4 MG/2 ML VIAL IVP PRN (20:17)
[2021-06-28 20:26] LABS: Basophils % (A) 0 %; Eosinophils # (A) 0.2 k/uL (0-0.7); Eosinophils % (A) 2 %; HCT 37.6 % (39.0-53.0); HGB 12.2 gm/dL (13.0-17.5); Lymphocytes # (A) 1.7 k/uL (1.0-4.8); Lymphocytes % (A) 16 %; MCH 31.3 pg (25.0-35.0); MCHC 32.6 g/dL (31.0-37.0); MCV 96.2 fL (80.0-100.0); Mean Platelet Volume 9.3; Monocytes # (A) 0.7 k/uL (0-1.0); Monocytes % (A) 7 %; Neutrophils # (A) 7.9 k/uL (1.3-7.7); Neutrophils % (A) 74 %; Platelet Count 172 k/uL (150-450); RDW 15.2 % (11.5-15.5); WBC 10.7 k/uL (3.8-10.6)
[2021-06-28] MEDS: PANTOPRAZOLE 40 MG/10 ML VIAL IVP SCH (22:40)
[2021-06-29 01:37] LABS: Basophils # (A) 0.1 k/uL (0-0.2); Basophils % (A) 1 %; Eosinophils # (A) 0.1 k/uL (0-0.7); Eosinophils % (A) 2 %; HCT 31.5 % (39.0-53.0); HGB 10.5 gm/dL (13.0-17.5); Lymphocytes # (A) 1.7 k/uL (1.0-4.8); Lymphocytes % (A) 20 %; MCH 32.1 pg (25.0-35.0); MCHC 33.4 g/dL (31.0-37.0); MCV 96.1 fL (80.0-100.0); Mean Platelet Volume 9.8; Monocytes # (A) 0.7 k/uL (0-1.0); Monocytes % (A) 8 %; Neutrophils # (A) 5.6 k/uL (1.3-7.7); Neutrophils % (A) 67 %; Platelet Count 134 k/uL (150-450); RBC 3.28 m/uL (4.30-5.90); RDW 15.3 % (11.5-15.5); WBC 8.3 k/uL (3.8-10.6)
[2021-06-29] MEDS: PANTOPRAZOLE 40 MG/10 ML VIAL IVP SCH ×2 (08:03→19:30)
[2021-06-29] MEDS: THIAMINE 100 MG TAB PO SCH ×2 (08:03→17:08)
[2021-06-29 10:15] LABS: Basophils # (A) 0.08 X 10*3/uL (0.00-0.10); Basophils % (A) 1.1 %; Eosinophils # (A) 0.15 X 10*3/uL (0.04-0.35); Eosinophils % (A) 2.1 %; HCT 31.3 % (39.6-50.0); HGB 9.9 g/dL (13.0-17.0); Lymphocytes # (A) 1.64 X 10*3/uL (0.90-5.00); Lymphocytes % (A) 22.6 %; MCH 30.2 pg (27.0-32.0); MCHC 31.6 g/dL (32.0-37.0); MCV 95.4 fL (80.0-97.0); Mean Platelet Volume 12.1 fL (9.5-12.2); Monocytes % (A) 12.4 %; Neutrophils # (A) 4.46 X 10*3/uL (1.80-7.70); Neutrophils % (A) 61.4 %; Platelet Count 136 X 10*3/uL (140-440); RBC 3.28 X 10*6/uL (4.40-5.60); RDW 17.1 % (11.5-14.5); WBC 7.26 X 10*3/uL (4.50-10.00)
[2021-06-29 10:31] LABS: African American GFR (CKD) 118.9 (60.0-200.0); Albumin 2.8 g/dL (3.80-4.90); Albumin/Globulin Ratio 0.9 (1.60-3.17); Anion Gap 5.8 mmol/L (4.00-12.00); BUN/Creat Ratio 25.71 Ratio (12.00-20.00); Calcium 7.8 mg/dL (8.7-10.3); Carbon Dioxide 28.2 mmol/L (21.6-31.8); Globulin 3.1 g/dL (1.6-3.3); Non-African American GFR(CKD) 102.6 (60.0-200.0); Potassium 3.9 mmol/L (3.5-5.5); Total Bilirubin 1.1 mg/dL (0.2-1.2); Total Protein 5.9 g/dL (6.2-8.2)
[2021-06-29] MEDS: LORazepam 2 MG/ML INJ IV PRN ×3 (11:31→19:40)
--- NOTE | 2021-06-29 12:28 | P.CONS ---
History of Present Illness - Reason for Consult Consult date: 06/29/21 hematemesis Requesting physician: Lee Carrington - Chief Complaint abdominal pain, hematemesis - History of Present Illness This is an 60-year-old male with a past history of alcohol abuse, GERD, GI bleed, hypertension, and obstructive sleep apnea. The patient has a significant history of alcohol abuse, he admits to drinking at least 2 pints a day and has been drinking at least the last 30 years. He states his last drink was yesterday morning. He presented to the emergency department yesterday evening with complaints of abdominal pain and vomiting blood. He states he had multiple episodes in the morning of vomiting blood last time he had any, was at 1300 yesterday. He reports it has bright red. He has a history of previous GI bleed and underwent EGD 09/22/[address] Patel that showed small distal esophageal varices with no active bleeding, long segment Li's esophagus, mild antral gastritis, and small hiatal hernia. The patient also has underwent a elective colonoscopy on 10/27/2020 for history of polyps with findings of a 3 mm ascending colon polyp and moderate sigmoid diverticulosis. The patient states he is not on any anticoagulation, does not use NSAIDs regularly, he does have Protonix ordered and is post take it daily but has not been. On admission WBC 9.1, hemoglobin 13, hematocrit 39, platelet count 171,000, INR 1.2, total bilir ubin 1.2, AST 120, ALT 46, alk phos 90, amylase 55, lipase 70, serum alcohol level 11. Repeat labs from this morning show drop in hemoglobin to 9.9, platelet count 136. Patient denies any further nausea or vomiting, denying any abdominal pain. He has been afebrile. He has been nothing by mouth after midnight. Review of Systems REVIEW OF SYSTEMS: CARDIOPULMONARY: No chest pain or shortness of breath. Gastrointestinal: Epigastric pain.. Nausea and vomiting yesterday with bright red blood.. No rectal bleeding, or melena. GENITOURINARY: No dysuria or hematuria. MUSCULOSKELETAL: Reports normal range of motion., Joint pain. SKIN: No rashes. No jaundice. ENDOCRINE: No chills, fevers. No excessive weight gain or loss. No polydipsia or polyuria. PSYCHIATRIC: Unremarkable. NEUROLOGY: No change in mental status. Denies dizziness, headache. ENT: Vision unremarkable. CONSTITUTIONAL: No recent weight loss. No fever, chills, night sweats. Past Medical History Past Medical History: GERD/Reflux, GI Bleed, Hypertension, Pneumonia, Sleep Apnea/CPAP/BIPAP Additional Past Medical History / Comment(s): Pt admitted to [facility] on 08/07/20 with hematemesis/alcohol intoxication/L hip pain. Other hx: Pt states he took himself off his antihypertensive medication, MARIELLE without device, bronchitis, L hip pain. History of Any Multi-Drug Resistant Organisms: None Reported Past Surgical History: Cholecystectomy, Hernia Repair Additional Past Surgical History / Comment(s): R inguinal hernia repair, EGD, colonoscopy. Additional Past Anesthesia/Blood Transfusion Reaction / Comm: Pt states he was told after his EGD that he had been a difficult intubation. Past Psychological History: Anxiety Additional Psychological History / Comment(s): Pt resides alone. He is independent. Smoking Status: Never smoker Past Alcohol Use History: Abuse, Daily, Heavy Additional Past Alcohol Use History / Comment(s): Pt states he has been drinking daily for approximately 40 yrs and is currently drinking 2 pints of vodka a day. He last drank 09/20/20 Past Drug Use History: Marijuana Additional Drug Use History / Comment(s): smokes marijuana occasional - Past Family History Mother Family Medical History: Musculoskeletal Disorder Additional Family Medical History / Comment(s): Mother is . She had MS. Father Family Medical History: AFIB, Diabetes Mellitus Medications and Allergies Home Medications Medication Instructions Recorded Confirmed Type Pantoprazole [Protonix] 40 mg PO DAILY PRN 10/25/20 06/28/21 History Allergies Allergy/AdvReac Type Severity Reaction Status Date / Time No Known Allergies Allergy Verified 06/28/21 14:34 Physical Exam Vitals: Vital Signs Temp Pulse Pulse Resp BP BP Pulse Ox 06/29/21 07:00 98.6 F 73 16 111/62 94 L 06/29/21 01:16 98.7 F 56 L 18 126/75 94 L 06/28/21 22:23 98.4 F 82 18 125/76 96 06/28/21 19:38 98.1 F 90 20 125/74 95 06/28/21 14:23 81 20 106/67 94 L 06/28/21 12:50 98.0 F 107 H 20 128/71 99 Intake and Output 06/28/21 06/29/21 06/29/21 22:59 06:59 14:59 Other: Voiding Method Toilet Toilet Urinal Urinal # Voids 1 Weight 136.078 kg General appearance: The patient is alert, oriented, appears in no acute distress. Obese. HET: Head is normocephalic and atraumatic. Conjunctiva pink. Sclera anicteric. Neck: Supple without lymphadenopathy. Trachea midline. Heart: S1 S2. Regular rate and rhythm. Lungs: Clear to auscultation. Abdomen: Soft, nontender, nondistended with bowel sounds. No guarding or rigidity. Skin: No rashes. No jaundice. Extremities: Normal skin color and turgor. No pedal edema. Neurological: No focal deficits. Alert and oriented 3.. Results CBC & Chem 7: 06/29/21 05:41 06/29/21 05:41 Labs: Abnormal Lab Results - Last 24 Hours (Table) 06/28/21 06/28/21 06/28/21 Range/Units 13:22 13:22 13:22 WBC (3.8-10.6) k/uL RBC 4.11 L (4.30-5.90) m/uL Hgb (13.0-17.5) gm/dL Hct (39.0-53.0) % Plt Count (150-450) k/uL Neutrophils # (1.3-7.7) k/uL PT 12.6 H (9.0-12.0) sec INR 1.2 H (<1.2) Chloride 108 H (98-107) mmol/L Creatinine 0.56 L (0.66-1.25) mg/dL Glucose 126 H (74-99) mg/dL AST 120 H (17-59) U/L Albumin 3.3 L (3.5-5.0) g/dL 06/28/21 06/29/21 Range/Units 20:01 01:13 WBC 10.7 H (3.8-10.6) k/uL RBC 3.90 L 3.28 L (4.30-5.90) m/uL Hgb 12.2 L 10.5 L (13.0-17.5) gm/dL Hct 37.6 L 31.5 L (39.0-53.0) % Plt Count 134 L (150-450) k/uL Neutrophils # 7.9 H (1.3-7.7) k/uL PT (9.0-12.0) sec INR (<1.2) Chloride (98-107) mmol/L Creatinine (0.66-1.25) mg/dL Glucose (74-99) mg/dL AST (17-59) U/L Albumin (3.5-5.0) g/dL Assessment and Plan (1) Hematemesis Narrative/Plan: 60-year-old male with known alcoholism who is still currently drinking 2 pints a day came into the emergency room after having several episodes of vomiting yesterday morning with bright red blood. He stated he was also having epigastric pain associated with it. Last episode of vomiting was 1300 yesterday. Last drink was yesterday morning. He has a history of upper GI bleed and underwent EGD with findings of small distal esophageal varices with no active bleeding, long segment Li's esophagus, mild antral gastritis, small hiatal hernia. Patient supposed be on Protonix daily, however has not been taking. He is not on any anticoagulation. Possible etiologies include Sunshine- Buenrostro tear, esophageal varices, peptic ulcer disease, gastritis or other possible etiologies. Will proceed with EGD this afternoon. Current Visit: Yes Status: Acute Code(s): K92.0 - HEMATEMESIS SNOMED Code(s): 0267978 (2) Alcohol abuse Current Visit: Yes Status: Acute Code(s): F10.10 - ALCOHOL ABUSE, UNCOMPLICATED SNOMED Code(s): 24955987 (3) History of esophageal varices Current Visit: Yes Status: Acute Code(s): Z87.19 - PERSONAL HISTORY OF OTHER DISEASES OF THE DIGESTIVE SYSTEM SNOMED Code(s): 15710425382154611 Plan: 1. Continue symptomatic supportive care 2. CIWA protocol, watch for withdrawals 3. Keep nothing by mouth 4. Protonix 40 mg twice a day 5. Patient scheduled for EGD this afternoon. Procedure discussed with patient in detail including risks and benefits, patient is willing to proceed. 6. Discuss with patient importance of alcohol abstinence Thank you for allowing us to participate in the care of the patient, the GI service will sign off, gastroenterology will not be available at the hospital this weekend and if further evaluation by gastroenterology is required the patient will need transfer as per the primary team's discretion. Dr. Seb Patel I agree with the dictator's note, documented as a scribe by Kait Alba.
[2021-06-29] MEDS ORDERED: KETAMINE 10 MG/ML 20 ML VIAL ONE (13:11)
[2021-06-29] MEDS ORDERED: GLYCOPYRROLATE 0.2 MG/ML 2 ML VIAL ONE (13:11)
[2021-06-29] MEDS ORDERED: PROPOFOL 10 MG/ML 20 ML VIAL IV ONE (13:11)
[2021-06-29] MEDS ORDERED: LIDOCAINE 1% INJ 10MG/ML (20 ML MDV) ONE (13:11)
[2021-06-29] MEDS ORDERED: IV FLUID CONTINUATION 1,000 ML IV ONE (13:12)
--- NOTE | 2021-06-29 13:27 | P.PCN ---
Date of Procedure: 06/29/21 Procedure(s) Performed: BRIEF HISTORY: Patient is a 60-year-old, pleasant, white male with history of heavy alcohol abuse admitted hospital with acute upper GI bleed. He had 1 Episode of Hematemesis. Last EGD Was in September 2020 Showed Small Esophageal Varices and Li's Esophagus.. PROCEDURE PERFORMED: Esophagogastroduodenoscopy with variceal ligation. PREOPERATIVE DIAGNOSIS: Acute upper GI bleed. IV sedation per anesthesia. PROCEDURE: After informed consent was obtained, the patient was brought into the endoscopy unit. IV sedation was administered by Anesthesia under continuous monitoring. Initially the Olympus GIF-140 video endoscope was inserted into the mouth. Esophagus intubated without any difficulty. It was gradually advanced into the stomach and duodenum and carefully examined. The bulb and the second part of the duodenum appeared normal. The scope at this time was withdrawn to the stomach, adequately insufflated with air, and upon careful examination, mucosa of the antrum, had nodular gastritis. No evidence of active GI bleed noted. Mucosa of the body, cardia and the fundus showed changes consistent with mild portal hypertensive gastropathy. No gastric varices seen. The scope was then withdrawn into the esophagus. The GE junction was located at 40 cm from the incisors. Small hiatal hernia noted. There were large distal esophageal varices identified with no stigmata of recent bleed or red gorge walker seen. Also there was long segment of Li's esophagus noted in the distal esophagus extending from 34-40 cm to the incisors. At this time the scope was removed and esophageal variceal ligation equipment was introduced of the scope and esophagus intubated without any difficulty. It was advanced into the distal esophagus total of 5 bands were deployed in the distal esophageal varices without any difficulty. No biopsies were done from the segment of Li's esophagus. The rest of the esophagus appeared normal. There were no erosions or ulcerations seen and the patient tolerated the procedure well. IMPRESSION: 1. Large distal esophageal varices status post variceal ligation as described above. 2. Nodular antral gastritis. Mild portal hypertensive gastropathy 3. Long segment Li's esophagus RECOMMENDATIONS: The findings of this examination were discussed with the patient . He'll be started on a clear liquid diet. Monitor CBC daily. If hemoglobin remains stable advance diet as tolerated tomorrow.. Follow up in office in 2-3 weeks following discharge from the hospital
[2021-06-29] MEDS: ONDANSETRON 4 MG/2 ML VIAL IVP PRN (13:45)
--- NOTE | 2021-06-29 23:28 | PN ---
PROGRESS NOTE This is a 60-year-old white male who is status post EGD with banding for esophageal varices today x3. Hemoglobin low. Will have to monitor. We are going to put him on for alcohol cessation and treatment. He will have to follow up as an outpatient, continue to work to try to stay off alcohol. He might be able to go home tomorrow. Continue with CIWA protocol. Monitor for signs of bleeding. Cardiovascular: S1, S2. Lungs clear. GI soft. Hematology: Negative Homans. Endocrine: BMI is over 40. ASSESSMENT: 1. Gastrointestinal bleed secondary to esophageal varices, gastric banding, alcoholism, alcohol withdrawal. Prognosis guarded. 2. Protein-calorie malnutrition. Continue CIWA protocol, proton pump inhibitors, fluid rehydration. Possible discharge home tomorrow if hemoglobin is stable. MMODL / IJN: [id number] /
[2021-06-29] MEDS: ACAMPROSATE CALCIUM 333 MG TABLET.DR PO SCH (23:43)
[2021-06-30] MEDS: THIAMINE 100 MG TAB PO SCH ×2 (07:27→16:38)
[2021-06-30] MEDS: PANTOPRAZOLE 40 MG/10 ML VIAL IVP SCH ×2 (07:27→20:56)
[2021-06-30] MEDS: ACAMPROSATE CALCIUM 333 MG TABLET.DR PO SCH ×3 (07:27→20:56)
[2021-06-30 09:22] LABS: Basophils # (A) 0.05 X 10*3/uL (0.00-0.10); Basophils % (A) 0.8 %; Eosinophils # (A) 0.14 X 10*3/uL (0.04-0.35); Eosinophils % (A) 2.3 %; HCT 31.3 % (39.6-50.0); HGB 9.9 g/dL (13.0-17.0); Lymphocytes # (A) 1.29 X 10*3/uL (0.90-5.00); MCH 30.4 pg (27.0-32.0); MCHC 31.6 g/dL (32.0-37.0); Mean Platelet Volume 12.4 fL (9.5-12.2); Monocytes # (A) 0.72 X 10*3/uL (0.20-1.00); Monocytes % (A) 11.7 %; Neutrophils % (A) 63.7 %; Platelet Count 115 X 10*3/uL (140-440); RBC 3.26 X 10*6/uL (4.40-5.60); RDW 16.7 % (11.5-14.5); WBC 6.13 X 10*3/uL (4.50-10.00)
[2021-06-30 10:37] LABS: African American GFR (CKD) 126.7 (60.0-200.0); Albumin 2.9 g/dL (3.80-4.90); Albumin/Globulin Ratio 0.97 (1.60-3.17); Anion Gap 7.8 mmol/L (4.00-12.00); Calcium 7.7 mg/dL (8.7-10.3); Carbon Dioxide 22.2 mmol/L (21.6-31.8); Non-African American GFR(CKD) 109.3 (60.0-200.0); Potassium 3.8 mmol/L (3.5-5.5); Total Bilirubin 1.1 mg/dL (0.3-1.2); Total Protein 5.9 g/dL (6.2-8.2)
--- NOTE | 2021-06-30 13:44 | XR ---
EXAMINATION TYPE: XR chest 2V DATE OF EXAM: 06/30/2021 COMPARISON: Chest x-ray September 21, 2020 HISTORY: Hypoxia. TECHNIQUE: Frontal and lateral views of the chest are obtained. FINDINGS: There is no new suspicious focal air space opacity, pleural effusion, or pneumothorax seen . The cardiac silhouette size is stable and within normal limits. The osseous structures are intac t. IMPRESSION: No acute process.
[2021-07-01] MEDS: THIAMINE 100 MG TAB PO SCH (07:13)
[2021-07-01] MEDS: ACAMPROSATE CALCIUM 333 MG TABLET.DR PO SCH (07:13)
[2021-07-01 07:17] VITALS: BP 112/74; PULSE 77; RESP 16; TEMP 98.4
[2021-07-01] MEDS ORDERED: PANTOPRAZOLE 40 MG TABLET PO SCH (07:30)
--- NOTE | 2021-07-01 07:31 | PN ---
PROGRESS NOTE 60-year-old heavy alcohol abuse, admitted with acute GI bleed. One episode of hematemesis. He went and had an upper GI and he had some clips placed. He had mild portal hypertension. Long segment Li's esophagus noted in the distal esophageal cyst 34-40 cm above the abdomen. Esophageal variceal ligation equipment introduced, 5 bands were deployed in the distal esophageal varices. No biopsies were done. Prognosis extremely guarded. He will have to go on proton pump inhibitors twice a day and stop drinking or he is going to have difficulty with Li's esophagus, possible esophageal cancer in the future. This is discussed with the patient. Possibly discharge home in the morning. MMODL / IJN: [id number] /
[2021-07-01 12:26] LABS: Basophils # (A) 0.08 X 10*3/uL (0.00-0.10); Basophils % (A) 1.2 %; Eosinophils # (A) 0.13 X 10*3/uL (0.04-0.35); Eosinophils % (A) 1.9 %; HCT 32.2 % (39.6-50.0); HGB 10.2 g/dL (13.0-17.0); Lymphocytes # (A) 1.31 X 10*3/uL (0.90-5.00); Lymphocytes % (A) 19.6 %; MCH 30.2 pg (27.0-32.0); MCHC 31.7 g/dL (32.0-37.0); MCV 95.3 fL (80.0-97.0); Mean Platelet Volume 12.7 fL (9.5-12.2); Monocytes # (A) 0.79 X 10*3/uL (0.20-1.00); Monocytes % (A) 11.8 %; Neutrophils # (A) 4.33 X 10*3/uL (1.80-7.70); Neutrophils % (A) 65.1 %; Platelet Count 121 X 10*3/uL (140-440); RBC 3.38 X 10*6/uL (4.40-5.60); RDW 16.9 % (11.5-14.5); WBC 6.67 X 10*3/uL (4.50-10.00)
[2021-07-01 13:42] LABS: African American GFR (CKD) 118.9 (60.0-200.0); Albumin 2.9 g/dL (3.80-4.90); Albumin/Globulin Ratio 0.88 (1.60-3.17); Anion Gap 5.9 mmol/L (4.00-12.00); BUN/Creat Ratio 11.43 Ratio (12.00-20.00); Calcium 8.2 mg/dL (8.7-10.3); Carbon Dioxide 27.1 mmol/L (21.6-31.8); Globulin 3.3 g/dL (1.6-3.3); Non-African American GFR(CKD) 102.6 (60.0-200.0); Potassium 4.2 mmol/L (3.5-5.5); Total Bilirubin 1.1 mg/dL (0.2-1.2); Total Protein 6.2 g/dL (6.2-8.2)
== END 2021-07-01 12:11 | disposition home or self-care (01) | DRG 381 ==
LOC: EC 12:02 → 1SOBS 15:57 → 6NMEDSUR 18:07 → OBSVTOIN 06-29 14:44
PROVIDERS: ADMIT Family Medicine; ATTEND Family Medicine
PROC: 06L38CZ Occlusion of Esophageal Vein with Extraluminal Device, Via Natural or Artificial Opening Endoscopic (ICD-10-PCS; principal; 2021-06-29 08:25)
DX: K22.70 Barrett's esophagus without dysplasia (principal); E46 Unspecified protein-calorie malnutrition; K76.6 Portal hypertension; R71.0 Precipitous drop in hematocrit; F10.239 Alcohol dependence with withdrawal, unspecified; F10.229 Alcohol dependence with intoxication, unspecified; I85.01 Esophageal varices with bleeding; I10 Essential (primary) hypertension; K22.8 Other specified diseases of esophagus; K29.70 Gastritis, unspecified, without bleeding; K31.89 Other diseases of stomach and duodenum; K44.9 Diaphragmatic hernia without obstruction or gangrene; K57.30 Diverticulosis of large intestine without perforation or abscess without bleeding; Y90.0 Blood alcohol level of less than 20 mg/100 ml; Z79.899 Other long term (current) drug therapy; Z83.3 Family history of diabetes mellitus; Z87.19 Personal history of other diseases of the digestive system; F41.9 Anxiety disorder, unspecified; G47.33 Obstructive sleep apnea (adult) (pediatric); K21.9 Gastro-esophageal reflux disease without esophagitis
CPT/HCPCS: 36415; 43255; 71046; 74018; 80053; 80320; 82150; 83605; 83690; 83735; 85025; 85610; 85730; 86850; 86900; 86901; 96361; 96372; 96374; 96375; 96376; 99285

== ENCOUNTER → 2022-05-13 | Outpatient (CLI) | payer OTHER ==
--- NOTE | 2022-05-14 05:51 | MR ---
EXAMINATION TYPE: MR hip LT wo/w con DATE OF EXAM: 05/13/2022 COMPARISON: None HISTORY: Bursitis left hip, pain, limited movement. CONTRAST: Standard multiplanar, multisequence MRI departmental protocol images were obtained without contrast a nd with 15 mL intravenous Gadavist gadolinium contrast. The pelvic ring appears intact. The proximal femurs are intact. No evidence of a fracture. No evidenc e of avascular necrosis. There is no free fluid in the pelvis. Bladder distends smoothly. There is mi ld hypertrophic acetabular spurring. There is a small left hip joint effusion. There is some mild inc reased signal in the soft tissues adjacent to the greater trochanter of both femurs and consistent wi th some trochanteric mild bursitis. IMPRESSION: No fracture. Minor osteoarthritis in the hip joints. Small left hip joint effusion. Mild bilateral tr ochanteric bursitis. No evidence of avascular necrosis.
== END | disposition home or self-care (01) ==
LOC: RADMRIMAIN 20:34
PROVIDERS: ATTEND Family Medicine
DX: M70.72 Other bursitis of hip, left hip (principal)
CPT/HCPCS: 73723; A9585

== ENCOUNTER → 2022-06-19 | Outpatient (CLI) | payer OTHER ==
--- NOTE | 2022-06-19 10:32 | US ---
EXAMINATION TYPE: US liver DATE OF EXAM: 06/19/2022 COMPARISON: US 07/2020 CLINICAL HISTORY: F10.20 Alcohol dependence. Alcohol dependence, Hx of cholecystectomy TECHNIQUE: Multiple sonographic images of the right upper quadrant are obtained. FINDINGS: EXAM MEASUREMENTS: Liver Length: 17.4 cm Gallbladder Wall: Surgically absent CBD: 0.4 cm Right Kidney: 13.9 x 5.2 x 5.9 cm Pancreas: Limited by overlying bowel gas Liver: Appears coarse Gallbladder: Surgically absent Evidence for sonographic Larsen's sign: No CBD: Appears wnl Right Kidney: No hydronephrosis or masses seen Exam limited due to patient's body habitus and increased bowel gas IMPRESSION: Coarsened pattern to the liver is nonspecific and associated with hepatic cirrhosis or hepatocellular disease correlate clinically.
--- NOTE | 2022-06-19 11:42 | CA ---
Transthoracic Echo Report Name: Giovani Santana Age: 61 Gender: M : 1960 Exam Date: 06/19/2022 10:20 Exam Location: [facility] Ht (in): 71 Wt (lb): 310 Ordering Physician: Lee Carrington MD Attending/Referring Phys: Umbrella Repairer Madeleine Maciel RDCS Procedure CPT: Indications: F10.20 Alcohol dependence, I50.9 Heart failure, Cardiac Hx: Technical Quality: Good Contrast 1: Total Dose (mL): Contrast 2: Total Dose (mL): MEASUREMENTS (Male / Female) Normal Values 2D ECHO LV Diastolic Diameter PLAX 5.0 cm 4.2 - 5.9 / 3.9 - 5.3 cm LV Systolic Diameter PLAX 2.7 cm IVS Diastolic Thickness 1.3 cm 0.6 - 1.0 / 0.6 - 0.9 cm LVPW Diastolic Thickness 1.3 cm 0.6 - 1.0 / 0.6 - 0.9 cm LV Relative Wall Thickness 0.5 RV Internal Dim ED PLAX 4.2 cm LV Diastolic Volume MOD BP 139.3 cm??? 67 - 155 / 56 - 104 cm??? LV Systolic Volume MOD BP 62.1 cm??? 22 - 58 / 19 - 49 cm??? LV Ejection Fraction MOD BP 55.4 % >= 55 % LV Cardiac Index MOD BP 1902.1 cm???/min???m??? LV Diastolic Volume MOD 4C 133.7 cm??? LV Systolic Volume MOD 4C 63.1 cm??? LV Ejection Fraction MOD 4C 52.8 % LV Cardiac Index MOD 4C 1740.8 cm???/min???m??? LV Diastolic Length 4C 7.6 cm LV Systolic Length 4C 6.9 cm LV Diastolic Volume MOD 2C 128.5 cm??? LV Systolic Volume MOD 2C 61.1 cm??? LV Ejection Fraction MOD 2C 52.4 % LV Cardiac Index MOD 2C 1660.6 cm???/min???m??? LV Diastolic Length 2C 8.7 cm LV Systolic Length 2C 7.0 cm LA Volume 87.8 cm??? 18 - 58 / 22 - 52 cm??? M-MODE Aortic Root Diameter MM 3.3 cm LA Systolic Diameter MM 4.3 cm LA Ao Ratio MM 1.3 MV E Point Septal Separation 1.0 cm AV Cusp Separation MM 2.3 cm DOPPLER AV Peak Velocity 134.5 cm/s AV Peak Gradient 7.2 mmHg MV Area PHT 3.2 cm??? MR Peak Velocity 502.4 cm/s MR Peak Gradient 101.0 mmHg Mitral E Point Velocity 100.7 cm/s Mitral A Point Velocity 82.4 cm/s Mitral E to A Ratio 1.2 MV Deceleration Time 235.7 ms MV E' Velocity 7.5 cm/s Mitral E to MV E' Ratio 13.4 TR Peak Velocity 93.0 cm/s TR Peak Gradient 3.5 mmHg Right Ventricular Systolic Press 8.5 mmHg FINDINGS Left Ventricle Mildly increased septal wall thickness. Mildly increased left ventricular systolic volume. Left ventricular ejection fraction is estimated at 55-60 % . Increased LAP grade 2 diastolic dysfunction. Right Ventricle Right ventricular dilatation. Right ventricular systolic pressure within normal limits. Right Atrium The right atrium is normal in size. Left Atrium Severely increased left atrial volume. Mildly increased left atrial area. Mitral Valve Structurally normal mitral valve without significant stenosis or prolapse. There is mild mitral regurgitation. Aortic Valve Structurally normal aortic valve without significant sclerosis or stenosis. There is no aortic regurgitation. Tricuspid Valve Structurally normal tricuspid valve without significant stenosis. Pulmonary artery systolic pressure is normal. Mild tricuspid regurgitation. Pulmonic Valve Structurally normal pulmonic valve without significant stenosis. There is no pulmonic regurgitation. Pericardium Normal pericardium without effusion. Aorta Normal aortic root dimension. CONCLUSIONS Mild LVH Normal left ventricular EF 55-60% Grade 2 diastolic dysfunction Moderately dilated left atrium Mild mitral regurgitation Mild tricuspid regurgitation RVSP 9 Previewed by: Dr. Denis Ford DO (Electronically Signed) Final Date: 19 June 2022 11:41
== END | disposition home or self-care (01) ==
LOC: RADECHMAIN 09:27
PROVIDERS: ATTEND Family Medicine
DX: I50.9 Heart failure, unspecified (principal); F10.20 Alcohol dependence, uncomplicated
CPT/HCPCS: 76705; 93306

== ENCOUNTER 2024-01-15 08:34 | Day surgery (SDC) | payer OTHER ==
[2024-01-13 18:15] VITALS: BMI 35.2
[2024-01-15] MEDS: LACTATED RINGERS 1,000 ML IV SCH (10:00)
[2024-01-15 10:34] VITALS: TEMP 98
[2024-01-15] MEDS ORDERED: PROPOFOL 10 MG/ML 20 ML VIAL IV ONE (10:37)
--- NOTE | 2024-01-15 10:40 | P.GSHP ---
History of Present Illness H&P Date: 01/15/24 Chief Complaint: GERD, diarrhea Is a 63-year-old male who presents with GERD and diarrhea. Patient presents today for EGD and colonoscopy Past Medical History Past Medical History: COPD, GERD/Reflux, GI Bleed, Hypertension, Pneumonia, Sleep Apnea/CPAP/BIPAP Additional Past Medical History / Comment(s): thinks has prostate inflamed,Pt admitted to [facility] on 08/07/20 with hematemesis/alcohol intoxication/L hip pain,esophageal varices MARIELLE without device, bronchitis, L hip pain. History of Any Multi-Drug Resistant Organisms: None Reported Past Surgical History: Cholecystectomy, Hernia Repair Additional Past Surgical History / Comment(s): R inguinal hernia repair, EGD, colonoscopy. Additional Past Anesthesia/Blood Transfusion Reaction / Comment(s): Pt states he was told after his EGD one time here @ [facility] "had some issues with anesthesia,not sure exactly what was the problem was" Smoking Status: Never smoker - Past Family History Mother Family Medical History: Musculoskeletal Disorder Additional Family Medical History / Comment(s): Mother is . She had MS. Father Family Medical History: AFIB, Cancer, Diabetes Mellitus Additional Family Medical History / Comment(s): prostate CA Medications and Allergies Home Medications Medication Instructions Recorded Confirmed Type Fluticasone/Umeclidin/Vilanter 1 puff INHALATION QAM 01/13/24 01/15/24 History [Farrah Whaley 200-62.5-25] Allergies Allergy/AdvReac Type Severity Reaction Status Date / Time No Known Allergies Allergy Verified 01/15/24 10:15 Surgical - Exam Vital Signs Temp Pulse Resp BP Pulse Ox 98 F 70 16 146/64 95 01/15/24 10:02 01/15/24 10:02 01/15/24 10:02 01/15/24 10:02 01/15/24 10:02 - General well developed, well nourished, no distress - Eyes PERRL - ENT normal pinna - Neck no masses - Respiratory normal expansion - Cardiovascular Rhythm: regular - Abdomen Abdomen: soft, non tender Assessment and Plan Assessment: GERD, diarrhea. We'll perform EGD and colonoscopy.
--- NOTE | 2024-01-15 10:57 | P.OP ---
Date of Procedure: 01/15/24 Preoperative Diagnosis: GERD Diarrhea Postoperative Diagnosis: Antral gastritis Diverticulosis Procedure(s) Performed: Colonoscopy. EGD Anesthesia: MAC Surgeon: Chucky Coppola Pathology: other (Antrum) Condition: stable Disposition: PACU Description of Procedure: The patient's placed on the endoscopy table in the lateral position. He received IV the gastroscope placed oropharynx passed in the esophagus and stomach. Scope was placed through the pylorus. The first and second portion of the duodenum appeared normal. Scope was then brought back the antrum this appeared mildly inflamed. A biopsy was performed. The scope was unretroflexed and remainder the stomach appeared normal. The GE junction was at 40 cm the distal esophagus appeared normal. Proximal esophagus. Normal. Scope withdrawn for patient. Next digital rectal exam was performed. This revealed no abnormalities. Flexible scope was then placed patient anus and passed throughout the colon. The scope was placed up into the transverse colon. The prep was very poor. At this point the scope was withdrawn. There is significant diverticular changes and left colon there is extensive diverticulosis of the sigmoid colon scope was back the rectum this appeared normal. Scope withdrawn for patient.
[2024-01-15 11:48] VITALS: BP 123/70; PULSE 73; RESP 16
== END 2024-01-15 11:37 | disposition home or self-care (01) ==
LOC: ORWHC2ENDO 08:34
PROVIDERS: ATTEND Surgery
DX: K29.50 Unspecified chronic gastritis without bleeding (principal); K21.9 Gastro-esophageal reflux disease without esophagitis; G47.33 Obstructive sleep apnea (adult) (pediatric); I10 Essential (primary) hypertension; J44.9 Chronic obstructive pulmonary disease, unspecified; Z90.49 Acquired absence of other specified parts of digestive tract; Z79.51 Long term (current) use of inhaled steroids; Z79.899 Other long term (current) drug therapy
CPT/HCPCS: 88305; 45378; 43239; J2704

== ENCOUNTER → 2024-01-20 | Outpatient (CLI) | payer OTHER ==
--- NOTE | 2024-01-20 13:28 | CA ---
Transthoracic Echo Report Name: Giovani Santana Age: 63 Gender: M : 1960 Exam Date: 01/20/2024 09:56 Exam Location: [facility] Ht (in): 72 Wt (lb): 262 Ordering Physician: Lee Carrington MD Attending/Referring Phys: Lee Carrington MD Sales Support Coordinator Irena Darnell RDCS Procedure CPT: Indications: R94.31 ABNORMAL EKG Cardiac Hx: Technical Quality: Fair Contrast 1: Total Dose (mL): Contrast 2: Total Dose (mL): MEASUREMENTS (Male / Female) Normal Values 2D ECHO LV Diastolic Diameter PLAX 5.0 cm 4.2 - 5.9 / 3.9 - 5.3 cm LV Systolic Diameter PLAX 3.5 cm IVS Diastolic Thickness 1.3 cm 0.6 - 1.0 / 0.6 - 0.9 cm LVPW Diastolic Thickness 1.2 cm 0.6 - 1.0 / 0.6 - 0.9 cm LV Relative Wall Thickness 0.5 RV Internal Dim ED PLAX 4.7 cm LA Volume 98.2 cm??? 18 - 58 / 22 - 52 cm??? LA Volume Index 39.3 cm???/m??? 16 - 28 cm???/m??? M-MODE Aortic Root Diameter MM 3.6 cm LA Systolic Diameter MM 6.7 cm LA Ao Ratio MM 1.9 AV Cusp Separation MM 2.3 cm DOPPLER AV Peak Velocity 195.5 cm/s AV Peak Gradient 15.3 mmHg AV Mean Velocity 152.3 cm/s AV Mean Gradient 10.1 mmHg AV Velocity Time Integral 48.1 cm LVOT Peak Velocity 189.4 cm/s LVOT Peak Gradient 14.3 mmHg LVOT Velocity Time Integral 47.3 cm MV Area PHT 3.3 cm??? Mitral E Point Velocity 91.0 cm/s Mitral A Point Velocity 100.0 cm/s Mitral E to A Ratio 0.9 MV Deceleration Time 232.2 ms MV E' Velocity 8.7 cm/s Mitral E to MV E' Ratio 10.4 TR Peak Velocity 287.1 cm/s TR Peak Gradient 33.0 mmHg Right Ventricular Systolic Press 37.9 mmHg FINDINGS Left Ventricle Mildly increased left ventricular wall thickness. Left ventricular cavity size normal. Normal left ventricular systolic function with no obvious regional wall motion abnormalities. Left ventricular ejection fraction is estimated at 55-60 %. Grade 1 diastolic dysfunction. Right Ventricle Right ventricular dilatation. Mild pulmonary hypertension. Right Atrium Right atrial dilatation. Left Atrium Moderately increased left atrial volume. Moderately increased left atrial area. Mitral Valve Structurally normal mitral valve. Mild mitral annular calcification. Mild mitral regurgitation. Aortic Valve Trileaflet aortic valve. Thickened aortic valve without stenosis. No aortic regurgitation. Tricuspid Valve Structurally normal tricuspid valve. [id number] tricuspid regurgitation. Pulmonic Valve Structurally normal pulmonic valve. Pericardium No pericardial effusion. Aorta Normal size aortic root and proximal ascending aorta. CONCLUSIONS Normal left ventricular ejection fraction 55-60% RVSP 38 Moderately dilated left atrium Mild mitral regurgitation Mild to moderate tricuspid regurgitation No pericardial effusion Previewed by: Dr. Denis Ford DO (Electronically Signed) Final Date: 20 January 2024 13:27
--- NOTE | 2024-01-20 13:35 | CA ---
Exercise Stress Test Report Name: Giovani Santana Exam Date: 01/20/2024 10:40 Exam Location: [facility] Ht (in): 71 Wt (lb): 262 BSA: 2.37 Ordering Phys: Lee Carrington MD Referring Phys: Lee Carrington MD Technologist: CAROLINA Age: 63 Gender: M : 1960 Procedure CPT: Indications: R94.31 ABNORMAL EKG ICD-10 Codes: Patient History: Abnormal EKG Medications: Meds past 24 hrs: Pretest Chest Pain: STRESS TEST Quinten Protocol Exercise Duration (min:sec): 09:[address] Depressions (mm): Angina Score: Rodriguez Score: Resting HR (bpm): 72 Peak HR (bpm): 140 Resting BP (mmHg): 117 / 76 Peak BP (mmHg): 186 / 99 MPHR: 157 Target HR: 133 % MPHR: 89 METS: 10.3 Total Dose: Peak Dose: Atropine: Double Product: 13194 BP Response: Stress Termination: TARGET HR REACHED/MAX EXERTION Stress Symptoms: NO SYMPTOMS Stress Summary: ECG ANALYSIS Resting ECG: Stress ECG: CONCLUSIONS Patient underwent exercise stress EKG with a Quinten protocol treadmill stress test. Patient exercised into Stage 3 for a total of 9 minutes reaching a total of 10.3 METS. Patient's maximum heart rate was 140 which represented 89% age-predicted maximum heart rate. Stress EKG findings: At baseline patient's EKG showed normal sinus rhythm, normal axis, no significant ST or T wave abnormalities. At peak exercise, EKG showed no significant change from baseline. Conclusions: 1. Normal EKG response to exercise without evidence of inducible ischemia. 2. Good exercise capacity. Dr. Denis Ford DO (Electronically Signed) Final Date: 20 January 2024 13:34
--- NOTE | 2024-01-20 15:30 | NM ---
EXAMINATION TYPE: NM stress cardiolite complete DATE OF EXAM: 01/20/2024 COMPARISON: NONE CLINICAL INDICATION: Male, 63 years old with history of R94.31 ABNORMAL EKG; TECHNIQUE: After the intravenous administration of 9.17 mCi Tc 99m Sestamibi - Rest images obtained 55 minutes post injection. The patient exercised using a KULDIP protocol and 1 minute prior to peak exercise was injected with 23 mCi Tc 99m Sestamibi - Stress images obtained 10 minutes post injection . FINDINGS: Targeted heart rate was achieved during performance of the study. Review of stress and rest SPECT arianna ges demonstrates no distinct perfusion abnormality. Gated analysis shows normal wall motion with an estimated left ventricular ejection fraction of 70 %. IMPRESSION: 1. No stress-induced ischemic change.
== END | disposition home or self-care (01) ==
LOC: RADNMMAIN 09:14
PROVIDERS: ATTEND Family Medicine
DX: I34.0 Nonrheumatic mitral (valve) insufficiency (principal); I36.1 Nonrheumatic tricuspid (valve) insufficiency; I51.7 Cardiomegaly; R94.31 Abnormal electrocardiogram [ECG] [EKG]
CPT/HCPCS: 93017; 93306; 78452; A9500